=== PATIENT | female | born 1935 | race Caucasian/White ===

== ENCOUNTER 2020-01-08 10:38 | Inpatient (IN) ==
[2020-01-08] MEDS ORDERED: 0.9 % SODIUM CHLORIDE 500 ML IV ONE (11:03)
--- NOTE | 2020-01-08 11:17 | Emergency Department Note ---
Skin/Abscess/FB HPI General Chief complaint: Skin/Abscess/Foreign Body Stated complaint: Wound on buttocks Time Seen by Provider: 01/08/20 10:43 Source: patient Mode of arrival: wheelchair Limitations: no limitations History of Present Illness HPI Narrative: Narrative: 84-year-old female patient referred to the emergency department from the wound care clinic for septic work-up and possible admission. Patient fell at home around 12/17 and during that time she fractured her left femur and laid on the floor for over 3 days. During this time she developed a considerable decubitus ulcer. She was seen and evaluated [facility] and underwent surgical correction of her left femur fracture. She was subsequently discharged and placed the [facility] and spent over a week there. She is performing some limited physical therapy associated with the femur fracture. However, she has been evaluated by the marketing analytics specialist (Dr. Garcia) here to our facility and he is wanting to surgically debride the decubitus ulcer, if the patient be admitted. Upon arrival, patient has no considerable complaints. She is not taking significant medications for pain. ROS: Denies systemic illness, fever, sweats, chills. Denies headaches, tinnitus, or vision changes. Denies runny nose, sinus congestion, or cough. Denies shortness of breath. Denies retrosternal chest pain or palpitations. Denies abdominal pain, nausea, vomiting, or diarrhea. Denies dysuria, hematuria, urinary frequency, or urinary urgency. Related Data Home Medications Medication Instructions Recorded Confirmed brimonidine 1 drp OPHTHALMIC (EYE) BID 01/08/20 01/08/20 diltiazem HCl 180 mg PO QAM 01/08/20 01/08/20 famotidine [Acid Nursing Director 20 mg PO DAILY 01/08/20 01/08/20 (famotidine)] ferrous sulfate [FeroSul] 325 mg PO BID 01/08/20 01/08/20 latanoprost 1 drp OPHTHALMIC (EYE) QDAY 01/08/20 01/08/20 losartan 50 mg PO BID 01/08/20 01/08/20 polyethylene glycol 3350 [Miralax] 17 g PO QDAY 01/08/20 01/08/20 timolol maleate 1 drp OPHTHALMIC (EYE) QDAY 01/08/20 01/08/20 Allergies Allergy/AdvReac Type Severity Reaction Status Date / Time No Known Drug Allergies Allergy Verified 01/08/20 10:39 Review of Systems ROS ROS Narrative: Narrative: All systems ED: reviewed and negative except as stated. [facility] Narrative Patient History Narrative: Narrative: Medical/Surgical/Family History All Active Problems Left femoral shaft fracture (Acute) Pulmonary embolism (Acute) History of hip surgery (Acute) Elevated LFTs (Acute) Pressure ulcer (Acute) Anemia (Acute) Atrial fibrillation (Acute) Stage 3 chronic kidney disease (Acute) Hypertension (Acute) Fall (Acute) History of hip surgery (Acute) Medical History (Updated 01/08/20 @ 13:49 by Simón Cantu PA-C) Dehydration (Acute) Left femoral shaft fracture (Acute) Rhabdomyolysis (Acute) Social History Smoking Status: Never smoker Exam Narrative Narrative: Narrative: General Limitations: no limitations General appearance: other (Well-developed, well-nourished, 84-year-old female patient laying semirecumbent on the emergency room gurney in no acute distress.) Head Head: atraumatic and normocephalic Eye Eye: Present normal appearance, PERRL and EOMI; Absent scleral icterus and conjunctival injection ENT ENT: Present normal oropharynx and mucous membranes moist Neck Neck: Present trachea midline; Absent lymphadenopathy Chest Chest: Present symmetric chest wall rise Respiratory Respiratory: Present normal lung sounds bilaterally; Absent respiratory distress, wheezes, stridor, accessory muscle use and prolonged expiratory phase Cardiovascular Cardiovascular: Present regular rate and normal rhythm; Absent systolic murmur and diastolic murmur Extremities Extremities: Present tenderness, normal capillary refill and pedal edema (Unilateral swelling to the left foot and ankle. This is been present since surgery.); Absent normal inspection (For, well-healed surgical incisions to the lateral aspect of the left lower extremity.), full ROM and calf tenderness Back Back: Present full ROM Neurological Neurological: Present alert and oriented X3 Psychiatric Psychiatric: Present normal affect and normal mood Skin Skin: Present warm, dry, normal color and other (Large, foul-smelling, full- thickness skin ulcer to the left gluteus measuring approximately 4 cm x 3.5 cm x 2 cm deep. Wound bed is dark eschar. Surrounding dermis is indurated and erythematous. Smaller, more superficial, partial-thickness skin ulcer to the right gluteus measuring approximately 2 cm. Wound bed is pink. No active drainage from either site.) Expanded Skin Body image: 1. Large full-thickness skin ulcer. Course Course Course Narrative: Patient does have considerable foul-smelling full-thickness skin ulcer to the left gluteus. Wound culture swab was obtained. Reviewed the patient's vital signs indicates she is afebrile, normotensive, with normal heart rate. At this time she does not appear to meet SIRS criteria. Will order scre ening laboratory studies including recommended preoperative chest x-ray and EKG. Patient is comfortable and does not require any aggressive analgesia. I am going to hold off IV antibiotics until the results of her laboratory studies are known.. Reevaluation(s) Reevaluation #1: Review of her diagnostics show the following: CBC WBC 6.0, RBC 3.02, hemoglobin 9.0, hematocrit 29.6, platelet 237. Lactic acid 1.5. CMP alkaline phosphatase 128, all others normal nodes. C-reactive protein 5.5. 2 view chest x-ray showing no acute disease. Upon reevaluation patient is resting comfortably on the emergency room [facility]. After reviewing all the data I discussed these findings with the patient. She has a normal WBC and acid level. However, the marketing analytics specialist it would like to perform surgical intervention tomorrow. With this in mind, I reached out to the hospitalist (Dr. Hudson) and discussed the case with him. At this time Dr. Hudson consented to admit the patient to observation and then have the marketing analytics specialist consult in. This was told to the patient who verbalized understanding. She is remained stable throughout her entire time in the emergency department and is going to be admitted as mentioned. Time: 13:47 Vital Signs Vital signs: Vital Signs Temperature 97.5 F 01/08/20 10:39 Pulse Rate 73 01/08/20 10:39 Respiratory Rate 16 01/08/20 10:39 Blood Pressure 157/61 01/08/20 10:39 Pulse Oximetry (%) 96 01/08/20 10:39 Temperature 97.5 F 01/08/20 10:39 Pulse Rate 72 01/08/20 12:30 Respiratory Rate 16 01/08/20 12:30 Blood Pressure 99/51 01/08/20 12:30 Pulse Oximetry (%) 96 01/08/20 12:30 MDM MDM Narrative Medical decision making narrative: Narrative: Lab Data Lab results reviewed: Yes I reviewed the patient's lab results. Result diagrams: 01/08/20 11:31 01/08/20 11:30 Labs: Lab Results 01/08/20 01/08/20 01/08/20 Range/Units 11:15 11:30 11:30 WBC (4.50-11.00) K/mcL RBC (3.59-5.38) M/mcL Hgb (11.2-15.7) g/dL Hct (34.1-44.9) % MCV (80.0-100.0) fL MCH (26.0-34.0) pg MCHC (31.0-36.0) g/dL RDW (11.5-14.5) % Plt Count (140-440) K/mcL MPV (7.4-10.4) fL Gran % (38.0-78.0) % Lymph % (Auto) (15.5-49.0) % [place] % (Auto) (1.0-12.0) % Eos % (Auto) (0.0-7.0) % Baso % (Auto) (0.0-2.0) % Gran # (1.80-8.00) K/mcL Lymph # (Auto) (1.50-4.80) K/mcL [place] # (Auto) (0.10-0.90) K/mcL Eos # (Auto) (0.00-0.70) K/mcL Baso # (Auto) (0.00-0.30) K/mcL VBG Lactic Acid 1.5 (0.5-2.0) mmol/L Sodium 140 (133-145) mmol/L Potassium 4.5 (3.3-5.1) mmol/L Chloride 100 (96-108) mmol/L Carbon Dioxide 24 (22-30) mmol/L Anion Gap 16.0 (8-16) BUN 11 (8-23) mg/dl Creatinine 0.9 (0.6-1.1) mg/dl GFR Calculation 58 Glucose 95 (70-105) mg/dL Calcium 9.3 (8.6-10.4) mg/dl Total Bilirubin 0.6 (0.0-1.0) mg/dL AST 25 (0-37) U/l ALT 12 (0-40) U/l Alkaline Phosphatase 128 H (39-117) U/L C-Reactive Protein 5.5 H (0.0-0.8) mg/dl Total Protein 7.2 (5.9-8.4) gm/dL Albumin 3.5 (3.2-5.2) gm/dL Globulin 3.7 (2.2-3.7) gm/dL Albumin/Globulin Ratio 0.9 L (1.0-2.3) Urine Color Light yellow Urine Appearance Slightly cloudy Urine pH 6.5 (5.0-9.0) Ur Specific [place] 1.010 (1.003-1.030) Urine Protein Neg (NEG) mg/dL Urine Glucose (UA) Norm (NEG) mg/dL Urine Ketones Neg (NEG) mg/dL Urine Occult Blood Trace A (<5) dane/mcL Urine Nitrate Neg (NEG) Urine Bilirubin Neg (NEG) mg/dL Urine Urobilinogen Norm (NEG) mg/dL Ur Leukocyte Esterase 3+ (large) (NEG) /uL Urine RBC 0 (0-1) /hpf Urine WBC 82 H (0-4) /hpf Ur Squamous Epith Cells < 1 (0-4) /hpf Urine Bacteria Mod A (0) /hpf Ur Culture Indicated? Yes 01/08/20 Range/Units 11:31 WBC 6.0 (4.50-11.00) K/mcL RBC 3.02 L (3.59-5.38) M/mcL Hgb 9.0 L (11.2-15.7) g/dL Hct 29.6 L (34.1-44.9) % MCV 98.0 (80.0-100.0) fL MCH 29.8 (26.0-34.0) pg MCHC 30.4 L (31.0-36.0) g/dL RDW 14.0 (11.5-14.5) % Plt Count 237 (140-440) K/mcL MPV 11.3 H (7.4-10.4) fL Gran % 64.9 (38.0-78.0) % Lymph % (Auto) 23.6 (15.5-49.0) % Hudson % (Auto) 8.2 (1.0-12.0) % Eos % (Auto) 2.8 (0.0-7.0) % Baso % (Auto) 0.5 (0.0-2.0) % Gran # 3.87 (1.80-8.00) K/mcL Lymph # (Auto) 1.41 L (1.50-4.80) K/mcL Hudson # (Auto) 0.49 (0.10-0.90) K/mcL Eos # (Auto) 0.17 (0.00-0.70) K/mcL Baso # (Auto) 0.03 (0.00-0.30) K/mcL VBG Lactic Acid (0.5-2.0) mmol/L Sodium (133-145) mmol/L Potassium (3.3-5.1) mmol/L Chloride (96-108) mmol/L Carbon Dioxide (22-30) mmol/L Anion Gap (8-16) BUN (8-23) mg/dl Creatinine (0.6-1.1) mg/dl GFR Calculation Glucose (70-105) mg/dL Calcium (8.6-10.4) mg/dl Total Bilirubin (0.0-1.0) mg/dL AST (0-37) U/l ALT (0-40) U/l Alkaline Phosphatase (39-117) U/L C-Reactive Protein (0.0-0.8) mg/dl Total Protein (5.9-8.4) gm/dL Albumin (3.2-5.2) gm/dL Globulin (2.2-3.7) gm/dL Albumin/Globulin Ratio (1.0-2.3) Urine Color Urine Appearance Urine pH (5.0-9.0) Ur Specific [place] (1.003-1.030) Urine Protein (NEG) mg/dL Urine Glucose (UA) (NEG) mg/dL Urine Ketones (NEG) mg/dL Urine Occult Blood (<5) dane/mcL Urine Nitrate (NEG) Urine Bilirubin (NEG) mg/dL Urine Urobilinogen (NEG) mg/dL Ur Leukocyte Esterase (NEG) /uL Urine RBC (0-1) /hpf Urine WBC (0-4) /hpf Ur Squamous Epith Cells (0-4) /hpf Urine Bacteria (0) /hpf Ur Culture Indicated? Radiology Data Radiology results reviewed: Yes I reviewed the patient's radiology results. Radiology results narrative: Ordering Physician: Simón Cantu PA-C Date of Service: 01/08/20 Procedure(s): XR chest 2V Accession Number(s): [id number] CLINICAL INFORMATION: Surgical clearance. COMPARISON: None. FINDINGS: Heart size, mediastinum and pulmonary vessels are normal. Lungs are clear. Small eventration posterior left diaphragm and small/ moderate broad eventration anterior right diaphragm appreciated. Syndesmophytes bridge all the thoracic vertebral bodies suggesting chronic ankylosing spondylosis. IMPRESSION: No acute disease Interpreted and Authenticated by: Emil Meadows 01/08/20 Discharge Plan Patient/Caregiver Discharge Instructions Pt seen by BIRD SITTER/PA only: Yes Clinical Impression: Pressure ulcer Patient Disposition: Xfer As Outpt/Obs ([facility]) Condition: Good Follow up with: Mar Hanna MD [Primary Care Provider] - Prescriptions: No Action polyethylene glycol 3350 [Miralax] 17 gram Powder In Packet 17 g PO QDAY RF: 0 diltiazem HCl 180 mg Capsule,Extended Release 24 Hr 180 mg PO QAM RF: 0 ferrous sulfate [FeroSul] 325 mg (65 mg iron) Tablet 325 mg PO BID RF: 0 losartan 50 mg Tablet 50 mg PO BID RF: 0 famotidine [Acid Nursing Director (famotidine)] 20 mg tablet 20 mg PO DAILY RF: 0 latanoprost 0.005 % Drops 1 drp OPHTHALMIC (EYE) QDAY RF: 0 brimonidine 0.2 % Drops 1 drp OPHTHALMIC (EYE) BID RF: 0 timolol maleate 0.5 % Drops 1 drp OPHTHALMIC (EYE) QDAY RF: 0
[2020-01-08 12:15] LABS: Basophils # (Auto) 0.03 K/mcL (0.00-0.30); Basophils % (Auto) 0.5 % (0.0-2.0); Eosinophils # (Auto) 0.17 K/mcL (0.00-0.70); Eosinophils % (Auto) 2.8 % (0.0-7.0); Granulocytes % (Auto) 64.9 % (38.0-78.0); Hematocrit 29.6 % (34.1-44.9); Lymphocytes # (Auto) 1.41 K/mcL (1.50-4.80); Lymphocytes % (Auto) 23.6 % (15.5-49.0); Mean Corpuscular HGB Conc 30.4 g/dL (31.0-36.0); Mean Platelet Volume 11.3 fL (7.4-10.4); Monocytes # (Auto) 0.49 K/mcL (0.10-0.90); Monocytes % (Auto) 8.2 % (1.0-12.0); Platelet Count 237 K/mcL (140-440); RBC 3.02 M/mcL (3.59-5.38)
[2020-01-08 12:32] LABS: Chloride 100 mmol/L (96-108)
[2020-01-08 12:35] LABS: ALT/SGPT 12 U/l (0-40); AST/SGOT 25 U/l (0-37); Albumin 3.5 gm/dL (3.2-5.2); Albumin/Globulin Ratio 0.9 (1.0-2.3); Alkaline Phosphatase 128 U/L (39-117); Bilirubin,Total 0.6 mg/dL (0.0-1.0); Blood Urea Nitrogen 11 mg/dl (8-23); C-Reactive Protein 5.5 mg/dl (0.0-0.8); Calcium 9.3 mg/dl (8.6-10.4); Carbon Dioxide 24 mmol/L (22-30); Globulin 3.7 gm/dL (2.2-3.7); Glomerular Filtration Rate 58; Glucose 95 mg/dL (70-105)
--- NOTE | 2020-01-08 12:53 | XRay Report ---
CLINICAL INFORMATION: Surgical clearance. COMPARISON: None. FINDINGS: Heart size, mediastinum and pulmonary vessels are normal. Lungs are clear. Small eventration posterior left diaphragm and small/ moderate broad eventration anterior right diaphragm appreciated. Syndesmophytes bridge all the thoracic vertebral bodies suggesting chronic ankylosing spondylosis. IMPRESSION: No acute disease Interpreted and Authenticated by: Emil Meadows 01/08/20
[2020-01-08 13:21] LABS: Appearance,Urine SLIGHTLY CLOUDY; Bacteria,Urine MOD /hpf (0); Bilirubin,Urine NEG (NEG); Color,Urine LIGHT YELLOW; Culture Indicated,Urine YES; Glucose,Urine (UA) NORM (NEG); Ketones,Urine NEG (NEG); Leukocyte Esterase,Urine 3+ (LARGE) /uL (NEG); Nitrate,Urine NEG (NEG); PH,Urine 6.5 (5.0-9.0); Protein,Urine NEG (NEG); Urine Blood TRACE ery/mcL (<5); Urine RBC 0 /hpf (0-1); Urine Squamous Epithelial Cell < 1 /hpf (0-4); Urine WBC 82 /hpf (0-4); Urobilinogen,Urine NORM (NEG)
--- NOTE | 2020-01-08 13:40 | Internal Med History&Physical ---
HPI History of Present Illness Patient information: Note initiated : 01/08/20 at 1:40 pm Service Date, if different from initiated Date: [] Patient: Nu Coto a 84 y/o F admitted on for Wound on buttocks. Chief Complaint: [] History of present illness: Ms. Coto is a 84 year old F with a history of DVT/PE on anticoagulation/HTN/glaucoma and sacral decubitus ulcer following a traumatic fall early December leading to hip fracture and was on the floor for 3 days until she was admitted to the hospital. She was discharged to [facility] for rehab following which she discharged home. She noticed her wound getting progressively worse and using foul smelling discharge. She follows up with Dr. Garcia wound care clinic. She was evaluated today at the wound care clinic and subsequently referred to the ER for admission and operative in tervention/debridement of sacral decubiti. I discussed the case with Dr. Garcia who recommended admitting for 48 hours while she will undergo surgical intervention. Initial work-up in the ER was unremarkable with normal bicarb profile and no evidence of sepsis however urine drainage with foul-smelling necrotic decubitus ulcer noted. Hospitalist service was consulted for admission At the time of my evaluation patient is alert and respond to commands. She denies active distress. She endorses history as above. She denies subsequent trauma. She denies diarrhea, dysuria, fever, chills, shortness of breath Review of systems 10 point review system was performed and is negative except for ones discussed above [facility] Medical History (Updated 01/08/20 @ 13:49 by Simón Cantu PA-C) Dehydration (Acute) Left femoral shaft fracture (Acute) Rhabdomyolysis (Acute) Social History smoking status: Never smoker MEDS/ALLERGIES Home Medications and Allergies Home Medications Medication Instructions Recorded Confirmed Type apixaban [Eliquis] 5 mg PO BID 01/08/20 01/08/20 History brimonidine 1 drp OPHTHALMIC (EYE) BID 01/08/20 01/08/20 History diltiazem HCl 180 mg PO QAM 01/08/20 01/08/20 History famotidine [Acid Protection Specialist 20 mg PO DAILY 01/08/20 01/08/20 History (famotidine)] ferrous sulfate [FeroSul] 325 mg PO BID 01/08/20 01/08/20 History latanoprost 1 drp OPHTHALMIC (EYE) QDAY 01/08/20 01/08/20 History losartan 50 mg PO BID 01/08/20 01/08/20 History polyethylene glycol 3350 [Miralax] 17 g PO QDAY 01/08/20 01/08/20 History timolol maleate 1 drp OPHTHALMIC (EYE) QDAY 01/08/20 01/08/20 History Allergies Allergy/AdvReac Type Severity Reaction Status Date / Time No Known Drug Allergies Allergy Verified 01/08/20 10:39 EXAM Constitutional Vitals: Temp Pulse Resp BP Pulse Ox 97.5 F 72 16 99/51 96 01/08/20 10:39 01/08/20 12:30 01/08/20 12:30 01/08/20 12:30 01/08/20 12:30 Head normocephalic Oral cavity moist No ear nose discharge Eye movement symmetrical Neck supple no lymphadenopathy S1-S2 occasionally irregular Nonlabored breathing Nondistended nontender abdomen Sacral decubitus ulcer foul-smelling 3 x 3 cm area of necrotic tissue Lower extremity no cyanosis clubbing or joint swelling Skin no other suspicious lesion Psych anxious but alert cooperative Neuro normal higher function DATA Data Completed and Pending Labs on day of discharge: Labs from last 24 hours 01/08/20 01/08/20 01/08/20 11:31 11:30 11:30 WBC 6.0 RBC 3.02 L Hgb 9.0 L Hct 29.6 L MCV 98.0 MCH 29.8 MCHC 30.4 L RDW 14.0 Plt Count 237 MPV 11.3 H Gran % 64.9 Lymph % (Auto) 23.6 [place] % (Auto) 8.2 Eos % (Auto) 2.8 Baso % (Auto) 0.5 Gran # 3.87 Lymph # (Auto) 1.41 L [place] # (Auto) 0.49 Eos # (Auto) 0.17 Baso # (Auto) 0.03 VBG Lactic Acid 1.5 Sodium 140 Potassium 4.5 Chloride 100 Carbon Dioxide 24 Anion Gap 16.0 BUN 11 Creatinine 0.9 GFR Calculation 58 Glucose 95 Calcium 9.3 Total Bilirubin 0.6 AST 25 ALT 12 Alkaline Phosphatase 128 H C-Reactive Protein 5.5 H Total Protein 7.2 Albumin 3.5 Globulin 3.7 Albumin/Globulin Ratio 0.9 L Urine Color Urine Appearance Urine pH Ur Specific [place] Urine Protein Urine Glucose (UA) Urine Ketones Urine Occult Blood Urine Nitrate Urine Bilirubin Urine Urobilinogen Ur Leukocyte Esterase Urine RBC Urine WBC Ur Squamous Epith Cells Urine Bacteria Ur Culture Indicated? 01/08/20 11:15 WBC RBC Hgb Hct MCV MCH MCHC RDW Plt Count MPV Gran % Lymph % (Auto) [place] % (Auto) Eos % (Auto) Baso % (Auto) Gran # Lymph # (Auto) [place] # (Auto) Eos # (Auto) Baso # (Auto) VBG Lactic Acid Sodium Potassium Chloride Carbon Dioxide Anion Gap BUN Creatinine GFR Calculation Glucose Calcium Total Bilirubin AST ALT Alkaline Phosphatase C-Reactive Protein Total Protein Albumin Globulin Albumin/Globulin Ratio Urine Color Light yellow Urine Appearance Slightly cloudy Urine pH 6.5 Ur Specific [place] 1.010 Urine Protein Neg Urine Glucose (UA) Norm Urine Ketones Neg Urine Occult Blood Trace A Urine Nitrate Neg Urine Bilirubin Neg Urine Urobilinogen Norm Ur Leukocyte Esterase 3+ (large) Urine RBC 0 Urine WBC 82 H Ur Squamous Epith Cells < 1 Urine Bacteria Mod A Ur Culture Indicated? Yes A/P Narrative A/P Narrative: * Sacral decubitus wound with necrosis and surrounding cellulitis. Patient will undergo operative intervention/wound VAC placement by wound care physician Dr. Garcia. Admit as observation. * History of PE on anticoagulation. Hold anticoagulation for 24 hours * Glaucoma continue latanoprost/timolol/brimonidine * History of atrial fibrillation continue diltiazem * Hypertension continue losartan * GERD continue PPI Plan * Observation admit * N.p.o. after midnight * Antibiotic coverage * Pre-existing medical condition management as above * Hold anticoagulation * Wound care consult Time Spent With Patient Time: Total time spent is greater than 50% in coordination of care (as documented) at patient's floor/unit and/or counseling patient:
[2020-01-08] MEDS ORDERED: ONDANSETRON 4 MG ODT TABLET SL PRN (14:54)
[2020-01-08] MEDS ORDERED: MAGNESIUM SULFATE 2 GM/50 ML BAG IV PRN (14:54)
[2020-01-08] MEDS ORDERED: METOPROLOL TARTRATE 5 MG/5 ML VIAL IV PRN (14:54)
[2020-01-08] MEDS ORDERED: POTASSIUM CHLORIDE 40 MEQ in DEXTROSE 5% IN WATER 500 ML IV PRN (14:54)
[2020-01-08] MEDS ORDERED: MELATONIN 3 MG TABLET PO PRN (14:54)
[2020-01-08] MEDS ORDERED: BISACODYL 10 MG SUPP.RECT PR PRN (14:54)
[2020-01-08] MEDS ORDERED: POLYETHYLENE GLYCOL 3350 17 GM PACKET PO PRN (14:54)
[2020-01-08] MEDS ORDERED: hydrALAZINE 20 MG/ML VIAL IV PRN (14:54)
[2020-01-08] MEDS ORDERED: ACETAMINOPHEN 650 MG/65 ML BOTTLE IV PRN (14:54)
[2020-01-08] MEDS ORDERED: CEFEPIME 2 GM in DEXTROSE 5% IN WATER 50 ML IV SCH (14:54)
[2020-01-08] MEDS ORDERED: ONDANSETRON 4 MG/2 ML VIAL IV PRN (14:54)
[2020-01-08] MEDS: 0.9 % SODIUM CHLORIDE 10 ML SYRINGE IV SCH ×2 (17:12→22:03)
[2020-01-08] MEDS: FERROUS SULFATE 325 MG TABLET PO SCH ×2 (17:16→17:20)
[2020-01-08] MEDS: CEFEPIME 2 GM VIAL IV SCH (17:17)
[2020-01-08] MEDS: 0.9 % SODIUM CHLORIDE 1,000 ML IV SCH (17:19)
--- NOTE | 2020-01-08 17:21 | General Surgery Consult Note ---
HPI Data of Consult Primary Care Provider: Mar Hanna Consult Narrative Chief complaint: Infected Sacral pressure ulcers both buttocks . LEFT >> Right . Reason for consult: Surgical excision / Debridement. History of present illness: This lady was seen in wound care center today and se nt to ER for evaluation and admission for surgery in AM. 84/F S/P ORIF Left hip on 12/16/2019. Failed out patient Rehab and Physical therapy. Taken home by family to provided care at home. Patient developed pressure ulcers of buttocks, with FULL thickness necroses and gross localized infection with foul odor. NEEDS surgery / debridement at this time. Subsequent care / treatment i. e. open packing FIRST wound VAC etc later, will be determined as her condition evolves. I discussed this at length with patient's daughter, who is main CG. cc:: CC: Clement Schmitz [facility] Medical History (Updated 01/08/20 @ 13:49 by Simón Cantu PA-C) Dehydration (Acute) Left femoral shaft fracture (Acute) Rhabdomyolysis (Acute) Social History smoking status: Never smoker MEDS/ALLERGIES Home Medications and Allergies Home Medications Medication Instructions Recorded Confirmed Type apixaban [Eliquis] 5 mg PO BID 01/08/20 01/08/20 History brimonidine 1 drp OPHTHALMIC (EYE) BID 01/08/20 01/08/20 History diltiazem HCl 180 mg PO QAM 01/08/20 01/08/20 History famotidine [Acid Chief Diversity Officer 20 mg PO DAILY 01/08/20 01/08/20 History (famotidine)] ferrous sulfate [FeroSul] 325 mg PO BID 01/08/20 01/08/20 History latanoprost 1 drp OPHTHALMIC (EYE) QDAY 01/08/20 01/08/20 History losartan 50 mg PO BID 01/08/20 01/08/20 History polyethylene glycol 3350 [Miralax] 17 g PO QDAY 01/08/20 01/08/20 History timolol maleate 1 drp OPHTHALMIC (EYE) QDAY 01/08/20 01/08/20 History Allergies Allergy/AdvReac Type Severity Reaction Status Date / Time No Known Drug Allergies Allergy Verified 01/08/20 10:39 Physical Examination Vital Signs Vital signs: Temp Pulse Resp BP Pulse Ox 98.4 F 81 16 143/59 98 01/08/20 14:33 01/08/20 14:33 01/08/20 14:33 01/08/20 14:33 01/08/20 14:33 General physical appearance General physical exam: well developed, well nourished, no distress, no pain and other (FOUL SMELLING and draining necrotic tissue Buttock pressure ulcers . Bilateral.) Eyes Eye exam: PERRL and normal ocular movement ENT ENT exam: normal pinna, normal nares, normal mucosa and no congestion Head Head exam IM: Present atraumatic and normal inspection Neck Neck exam: no masses, trachea midline and no venous distension Cardiovascular Cardiovascular exam IM: Present normal rate and rhythm Respiratory Respiratory exam: normal expansion and clear to auscultation Abdomen Abdomen: Present soft, non tender and bowel sounds Integumentary Integumentary: Present other (Pressure ulcer Stage 5 Left buttock; Stage 3 Right buttock) Neurologic Neurologic: Present normal coordination and other (Ambulatory patient . Grossly NON focal neurological examination.) Musculoskeletal Musculoskeletal: Present other (S/P Left hip surgery . Ambulates with walker.) Psychiatric Psychiatric: Present speech is normal and other (Dementia / Alzheimer ?) Results Labs Result diagrams: 01/08/20 11:31 01/08/20 11:30 Labs: Abnormal lab results 01/08/20 01/08/20 01/08/20 Range/Units 11:15 11:30 11:31 RBC 3.02 L (3.59-5.38) M/mcL Hgb 9.0 L (11.2-15.7) g/dL Hct 29.6 L (34.1-44.9) % MCHC 30.4 L (31.0-36.0) g/dL MPV 11.3 H (7.4-10.4) fL Lymph # (Auto) 1.41 L (1.50-4.80) K/mcL Alkaline Phosphatase 128 H (39-117) U/L C-Reactive Protein 5.5 H (0.0-0.8) mg/dl Albumin/Globulin Ratio 0.9 L (1.0-2.3) Urine Occult Blood Trace A (<5) dane/mcL Urine WBC 82 H (0-4) /hpf Urine Bacteria Mod A (0) /hpf Diabetes panel 01/08/20 Range/Units 11:30 Sodium 140 (133-145) mmol/L Potassium 4.5 (3.3-5.1) mmol/L Chloride 100 (96-108) mmol/L Carbon Dioxide 24 (22-30) mmol/L BUN 11 (8-23) mg/dl Creatinine 0.9 (0.6-1.1) mg/dl Glucose 95 (70-105) mg/dL Calcium 9.3 (8.6-10.4) mg/dl AST 25 (0-37) U/l ALT 12 (0-40) U/l Alkaline Phosphatase 128 H (39-117) U/L Total Protein 7.2 (5.9-8.4) gm/dL Albumin 3.5 (3.2-5.2) gm/dL Calcium panel 01/08/20 Range/Units 11:30 Calcium 9.3 (8.6-10.4) mg/dl Albumin 3.5 (3.2-5.2) gm/dL Pituitary panel 01/08/20 Range/Units 11:30 Sodium 140 (133-145) mmol/L Potassium 4.5 (3.3-5.1) mmol/L Chloride 100 (96-108) mmol/L Carbon Dioxide 24 (22-30) mmol/L BUN 11 (8-23) mg/dl Creatinine 0.9 (0.6-1.1) mg/dl Glucose 95 (70-105) mg/dL Calcium 9.3 (8.6-10.4) mg/dl Adrenal panel 01/08/20 Range/Units 11:30 Sodium 140 (133-145) mmol/L Potassium 4.5 (3.3-5.1) mmol/L Chloride 100 (96-108) mmol/L Carbon Dioxide 24 (22-30) mmol/L BUN 11 (8-23) mg/dl Creatinine 0.9 (0.6-1.1) mg/dl Glucose 95 (70-105) mg/dL Calcium 9.3 (8.6-10.4) mg/dl Total Bilirubin 0.6 (0.0-1.0) mg/dL AST 25 (0-37) U/l ALT 12 (0-40) U/l Alkaline Phosphatase 128 H (39-117) U/L Total Protein 7.2 (5.9-8.4) gm/dL Albumin 3.5 (3.2-5.2) gm/dL All other labs normal. A/P Narrative A/P Narrative: Assessment: Infected pressure ulcers Bilateral buttocks / gluteal region. Plan: NPO after midnight. For OR surgical debridement and pulse lavage irrigation. Tissue for c/s. Open packing. Time Spent With Patient Time: Total time spent is greater than 50% in coordination of care (as documented) at patient's floor/unit and/or counseling patient: Total time spent with greater than 50% in coordination of care (as documented) at patient's floor/unit and/or counseling patient:: 15 - 24 minutes
[2020-01-08] MEDS ORDERED: SENNOSIDES/DOCUSATE SODIUM 1 TAB TABLET PO SCH (21:00)
[2020-01-08] MEDS: LOSARTAN 50 MG TABLET PO SCH (21:09)
[2020-01-08] MEDS: DOCUSATE SODIUM 100 MG CAPSULE PO SCH (21:09)
[2020-01-08] MEDS: ACETAMINOPHEN 325 MG TABLET PO PRN (21:09)
[2020-01-08] MEDS: BRIMONIDINE OPHTH DROPS 1 GTT BOTTLE 5ML OU SCH (21:11)
[2020-01-09] MEDS: CEFEPIME 2 GM VIAL IV SCH ×3 (00:31→20:37)
[2020-01-09] MEDS: ACETAMINOPHEN 325 MG TABLET PO PRN ×2 (01:45→20:38)
[2020-01-09] MEDS: 0.9 % SODIUM CHLORIDE 10 ML SYRINGE IV SCH ×3 (05:11→20:34)
[2020-01-09 06:52] LABS: Hematocrit 23.6 % (34.1-44.9); Hemoglobin 7.7 g/dL (11.2-15.7); Mean Cell Volume 93.3 fL (80.0-100.0); Mean Corpuscular HGB Conc 32.6 g/dL (31.0-36.0); Mean Platelet Volume 10.6 fL (7.4-10.4); Platelet Count 218 K/mcL (140-440); RBC 2.53 M/mcL (3.59-5.38); Red Cell Distribution Width 14.1 % (11.5-14.5)
[2020-01-09 07:09] LABS: ALT/SGPT 10 U/l (0-40); AST/SGOT 14 U/l (0-37); Albumin 2.8 gm/dL (3.2-5.2); Alkaline Phosphatase 95 U/L (39-117); Bilirubin,Direct < 0.2 mg/dL (0.0-0.3); Bilirubin,Total 0.5 mg/dL (0.0-1.0); Blood Urea Nitrogen 12 mg/dl (8-23); C-Reactive Protein 5.6 mg/dl (0.0-0.8); Calcium 8.5 mg/dl (8.6-10.4); Carbon Dioxide 22 mmol/L (22-30); Chloride 106 mmol/L (96-108); Globulin 2.7 gm/dL (2.2-3.7); Glomerular Filtration Rate 58; Glucose 108 mg/dL (70-105); Lactate Dehydrogenase 209 U/L (94-250); Phosphorous 3.9 mg/dL (2.7-4.5); Triglycerides 126 mg/dl (<150); Uric Acid 5.5 mg/dL (2.5-8.0)
[2020-01-09 08:23] LABS: Band Neutrophils % 2 % (0-10); Eosinophils % (Manual) 5 % (0-7); Lymphocytes % 10 % (15-49); Monocytes % (Manual) 11 % (1-12); Platelet Estimate NORMAL (NORMAL); RBC Morphology NORMAL (NORMAL); Segmented Neutrophils % 72 % (38-78)
[2020-01-09 08:37] LABS: Erythrocyte Sedimentation Rate 70 mm/hr (0-20)
[2020-01-09] MEDS ORDERED: POLYETHYLENE GLYCOL 3350 17 GM PACKET PO SCH (09:00)
[2020-01-09] MEDS ORDERED: LATANOPROST OPHTH DROPS 2.5ML BOTTLE OU SCH (09:00)
[2020-01-09] MEDS ORDERED: TIMOLOL 0.5% OPHTH DROPS BOTTLE 5ML OU SCH (09:00)
[2020-01-09] MEDS ORDERED: DILTIAZEM 180 MG CAP.XL.24H PO SCH (09:00)
[2020-01-09] MEDS ORDERED: FAMOTIDINE 20 MG TABLET PO SCH (09:00)
[2020-01-09] MEDS ORDERED: MULTIVIT,THER IRON,CA,FA & MIN 1 TABLET PO SCH (09:00)
--- NOTE | 2020-01-09 09:26 | Internal Med Progress Note ---
SUBJECTIVE Subjective Patient information: Note initiated : 01/09/20 at 9:25 am Service Date, if different from initiated Date: [] Patient: Nu Coto a 84 y/o F admitted on 01/08/20 for Wound on buttocks. Chief Complaint: History of present illness: Ms. Coto is a 84 year old F with a history of DVT/PE on anticoagulation/HTN/glaucoma and sacral decubitus ulcer following a traumatic fall early December leading to hip fracture and was on the floor for 3 days until she was admitted to the hospital. She was discharged to [facility] for rehab following which she discharged home. She noticed her wound getting progressively worse and using foul smelling discharge. She follows up with Dr. Garcia wound care clinic. She was evaluated today at the wound care clinic and subsequently referred to the ER for admission and operative intervention/debridement of sacral decubiti. I discussed the case with Dr. Garcia who recommended admitting for 48 hours while she will undergo surgical intervention. Initial work-up in the ER was unremarkable with normal bicarb profile and no evidence of sepsis however urine drainage with foul-smelling necrotic decubitus ulcer noted. Hospitalist service was consulted for admission At the time of my evaluation patient is alert and respond to commands. She denies active distress. She endorses history as above. She denies subsequent trauma. She denies diarrhea, dysuria, fever, chills, shortness of breath 01/08-patient underwent debridements right buttock wound/abscess drainage/pulse lavage irrigation. No overnight events. No additional surgical nursing staff. Postoperatively doing well. On antibiotic coverage. Case discussed with Dr. Garcia. Constitutional Vitals: Vital Signs Temp Pulse Resp BP Pulse Ox 98.7 F 74 18 127/56 97 01/09/20 06:45 01/09/20 06:45 01/09/20 03:35 01/09/20 06:45 01/09/20 06:45 Period Temp Pulse Resp BP Sys/Muir Pulse Ox Last 24 Hr 97.5 F-99.2 F 71-81 16-18 99-157/51-80 96-99 Intake and Output 01/08/20 01/09/20 01/09/20 21:59 05:59 13:59 Intake Total 0 Output Total 450 Balance 0 -450 Weight 75.75 kg Alert and respond to commands Nonlabored breathing No significant postoperative pain No anxiety Intake & Output: Intake & Output 01/08/20 01/09/20 01/09/20 21:59 05:59 13:59 Intake Total 0 Output Total 450 Balance 0 -450 Weight 75.75 kg Intake: Oral 0 Output: Void Amount 450 Other: Meal Dinner Percent of Meal Consumed 75% Urine Appearance Cloudy Cloudy Urine Color Pale Bright Yellow Urine Odor Strong Strong # Voids 1 1 OBJ DATA Labs CBC & Chem 7: 01/09/20 05:35 01/09/20 05:35 Labs: Abnormal Lab Results 01/09/20 01/09/20 01/08/20 05:35 05:35 11:31 RBC 2.53 L 3.02 L Hgb 7.7 L 9.0 L Hct 23.6 L 29.6 L MCHC 30.4 L MPV 10.6 H 11.3 H Lymph # (Auto) 1.41 L Lymphocytes % 10 L ESR 70 H Glucose 108 H Calcium 8.5 L Alkaline Phosphatase C-Reactive Protein 5.6 H Total Protein 5.5 L Albumin 2.8 L Albumin/Globulin Ratio Urine Occult Blood Urine WBC Urine Bacteria 01/08/20 01/08/20 11:30 11:15 RBC Hgb Hct MCHC MPV Lymph # (Auto) Lymphocytes % ESR Glucose Calcium Alkaline Phosphatase 128 H C-Reactive Protein 5.5 H Total Protein Albumin Albumin/Globulin Ratio 0.9 L Urine Occult Blood Trace A Urine WBC 82 H Urine Bacteria Mod A Meds: Medications Acetaminophen (Tylenol) 650 mg PO Q4-6HP PRN; Protocol PRN Reason: Per Pain Protocol/Fever > 101 Last Admin: 01/09/20 01:45 Dose: 650 mg Documented by: Bisacodyl (Dulcolax) 10 mg NH Q2-3DAYS PRN PRN Reason: Constipation Brimonidine Tartrate (Alphagan P Ophth Drops) 1 gtt OU BID [facility] Last Admin: 01/08/20 21:11 Dose: Not Given Documented by: Cefepime HCl (Maxipime) 2 gm IV Q12H [facility] Last Admin: 01/09/20 00:31 Dose: 2 gm Documented by: Diltiazem HCl (Cardizem Cd) 180 mg PO DAILY [facility] Docusate Sodium (Colace) 100 mg PO BID [facility] Last Admin: 01/08/20 21:09 Dose: 100 mg Documented by: Famotidine (Pepcid) 20 mg PO DAILY [facility] Ferrous Sulfate (Ferrous Sulfate) 325 mg PO BIDCC [facility] Last Admin: 01/08/20 17:20 Dose: Not Given Documented by: Hydralazine HCl (Apresoline) 10 mg IV Q4-6HP PRN PRN Reason: Hypertension Potassium Chloride 40 meq/ (Dextrose) 520 mls @ 130 mls/hr IV UD PRN PRN Reason: K+ = or < 3.5 Sodium Chloride (Sodium Chloride 0.9%) 1,000 mls @ 50 mls/hr IV .Q20H [facility] Stop: 01/11/20 02:53 Last Admin: 01/08/20 17:19 Dose: 50 mls/hr Documented by: Acetaminophen (Ofirmev) 650 mg in 65 mls @ 130 mls/hr IV Q6HP PRN; Protocol PRN Reason: Per Pain Protocol/Fever > 101 Magnesium Sulfate (Magnesium Sulfate) 2 gm in 50 mls @ 50 mls/hr IV UD PRN PRN Reason: MG = or < 1.7 Iron Carb/Multivit/[place]/Folic Acid (Multivitamin W/Minerals) 1 tab PO DAILY [facility] Latanoprost (Xalatan Ophth Drops) 1 gtt OU QDAY [facility] Losartan Potassium (Cozaar) 50 mg PO BID [facility] Last Admin: 01/08/20 21:09 Dose: 50 mg Documented by: Melatonin (Melatonin 3mg Tablet) 3 mg PO HSP PRN PRN Reason: Insomnia Metoprolol Tartrate (Lopressor) 5 mg IV Q5M PRN PRN Reason: Heart Rate > 140 bpm Ondansetron HCl (Zofran Odt) 4 mg SL Q4-6HP PRN; Protocol PRN Reason: Nausea And Vomiting Ondansetron HCl (Zofran) 4 mg IV Q4-6HP PRN; Protocol PRN Reason: Nausea And Vomiting Polyethylene Glycol (Miralax) 17 gm PO DAILYP PRN PRN Reason: Constipation Senna/Docusate Sodium (Senna Plus Tablet) 1 tab PO HS [facility] Last Admin: 01/08/20 21:09 Dose: 1 tab Documented by: Sodium Chloride (Saline Flush) 10 ml IV Q8 [facility] Last Admin: 01/09/20 05:11 Dose: Not Given Documented by: Timolol Maleate (Timoptic 0.5% Ophth Drops) 1 gtt OU QDAY [facility] A/P Narrative A/P Narrative: * Sacral decubitus wound with necrosis and surrounding cellulitis. status post right buttock wound abscess drainage/pulse lavage irrigation. Continue wound care per wound physician. On cefepime/vancomycin. De-escalate based on cultures * Complicated UTI continue cefepime * Anemia- 2 U PRBC transfusion today * History of PE on anticoagulation. Restart anticoagulation in a.m. * Glaucoma continue latanoprost/timolol/brimonidine * History of atrial fibrillation continue diltiazem * Hypertension continue losartan * GERD continue PPI Plan * Postop care per surgery * Dietary interventions * Antibiotic coverage * Pre-existing medical condition management as above * Restart anticoagulation in 24 hours * Wound care consult Time Spent With Patient Time: Total time spent is greater than 50% in coordination of care (as documented) at patient's floor/unit and/or counseling patient: QUALITY VTE Deep Vein Thrombosis/Pulmonary Embolism Present on Admission: No
[2020-01-09] MEDS ORDERED: 0.9 % SODIUM CHLORIDE 250 ML IV SCH ×2 (09:30→15:10)
[2020-01-09] MEDS: FERROUS SULFATE 325 MG TABLET PO SCH ×2 (10:03→17:12)
[2020-01-09] MEDS: LOSARTAN 50 MG TABLET PO SCH ×2 (10:04→20:37)
[2020-01-09] MEDS: DOCUSATE SODIUM 100 MG CAPSULE PO SCH ×2 (10:05→20:34)
[2020-01-09] MEDS: BRIMONIDINE OPHTH DROPS 1 GTT BOTTLE 5ML OU SCH ×2 (10:23→20:34)
[2020-01-09] MEDS ORDERED: cefTRIAXone 1 GM VIAL IV ONE (10:44)
[2020-01-09] MEDS ORDERED: IPRATROPIUM/ALBUTEROL 3 ML AMPUL.NEB NEB PRN (10:56)
[2020-01-09] MEDS ORDERED: BENZOCAINE/MENTHOL 1 LOZENGE PO PRN (10:56)
[2020-01-09] MEDS ORDERED: ACETAMINOPHEN 1,000 MG/100 ML BOTTLE IV ONE (10:56)
[2020-01-09] MEDS ORDERED: METHOCARBAMOL 1,000 MG/10 ML VIAL IV PRN (10:56)
[2020-01-09] MEDS ORDERED: fentaNYL 100 MCG/2 ML VIAL IV PRN (10:56)
[2020-01-09] MEDS ORDERED: NALOXONE HCL 0.4 MG/ML VIAL IV PRN (10:56)
[2020-01-09] MEDS ORDERED: LACTATED RINGERS 250 ML IV PRN (10:56)
[2020-01-09] MEDS ORDERED: FLUMAZENIL 0.1 MG/ML ML IV PRN (10:56)
[2020-01-09] MEDS ORDERED: ONDANSETRON 4 MG/2 ML VIAL IV ONE (11:00)
[2020-01-09] MEDS ORDERED: PHENYLEPHRINE 10 MG/ML VIAL IV ONE (11:00)
[2020-01-09] MEDS ORDERED: LIDOCAINE HCL/PF 100 MG/5 ML SYRINGE IV ONE (11:00)
[2020-01-09] MEDS ORDERED: PROPOFOL 200 MG/20 ML VIAL IV ONE (11:00)
[2020-01-09] MEDS ORDERED: KETAMINE 100 MG/ML ML IV ONE (11:00)
[2020-01-09] MEDS ORDERED: LACTATED RINGERS 1,000 ML IV SCH (11:00)
[2020-01-09] MEDS ORDERED: VANCOMYCIN 1,000 MG in 0.9 % SODIUM CHLORIDE 250 ML IV ONE (11:00)
[2020-01-09] MEDS ORDERED: DEXAMETHASONE 10 MG/ML VIAL IV ONE (11:00)
[2020-01-09] MEDS ORDERED: GLYCOPYRROLATE 0.2 MG/ML VIAL IV ONE (11:00)
[2020-01-09] MEDS ORDERED: fentaNYL 100 MCG/2 ML VIAL IV ONE (11:00)
[2020-01-09] MEDS ORDERED: ePHEDrine 50 MG/ML AMPUL IV ONE (11:00)
[2020-01-09] MEDS ORDERED: GENTAMICIN SULFATE 800 MG/20 ML VIAL IR ONE (11:19)
[2020-01-09] MEDS ORDERED: TRIAMCINOLONE ACETONIDE 40 MG/ML VIAL INTRAARTIC ONE (11:52)
--- NOTE | 2020-01-09 12:04 | Brief Operative Note ---
Brief Operative Note Date of procedure: 01/09/20 Pre-op diagnosis: SEPSIS. CSSSI Abscess Left buttock and open wound Right butt ock. Post-op diagnosis: same Procedure: Debridement of RIGHT buttock wound EXCISION debridement of LEFT buttock wound / necroses and abscess. Pulse lavage irrigation Tissue for pathology and c/s OPEN packing, Grafts/Implants: No Anesthesia: GLMA Findings: Necrotizing CSSSI LEFT buttock with abscess Stage 5 Superficial RIGHT buttock wound / Ulcer Stage 2 Complications: none Surgeon: Jero Garcia Estimated blood loss (cc): 30 Specimens Removed/Pathology: other (Tiisue LEFT buttock for pathology and c/s.) Condition: stable Disposition: PACU
[2020-01-09] MEDS: 0.9 % SODIUM CHLORIDE 1,000 ML IV SCH ×2 (14:56→17:45)
[2020-01-09] MEDS ORDERED: hydrALAZINE 20 MG/ML VIAL IV PRN (15:10)
[2020-01-09] MEDS ORDERED: ACETAMINOPHEN 650 MG/65 ML BOTTLE IV PRN (15:10)
[2020-01-09] MEDS ORDERED: ONDANSETRON 4 MG ODT TABLET SL PRN (15:10)
[2020-01-09] MEDS ORDERED: POLYETHYLENE GLYCOL 3350 17 GM PACKET PO PRN (15:10)
[2020-01-09] MEDS ORDERED: ONDANSETRON 4 MG/2 ML VIAL IV PRN (15:10)
[2020-01-09] MEDS ORDERED: BISACODYL 10 MG SUPP.RECT PR PRN (15:10)
[2020-01-09] MEDS ORDERED: POTASSIUM CHLORIDE 40 MEQ in DEXTROSE 5% IN WATER 500 ML IV PRN (15:10)
[2020-01-09] MEDS ORDERED: METOPROLOL TARTRATE 5 MG/5 ML VIAL IV PRN (15:10)
[2020-01-09] MEDS: SENNOSIDES/DOCUSATE SODIUM 1 TAB TABLET PO SCH (20:34)
[2020-01-09] MEDS: APIXABAN 5 MG TABLET PO SCH (20:37)
[2020-01-09] MEDS: MELATONIN 3 MG TABLET PO PRN (20:37)
[2020-01-10] MEDS: 0.9 % SODIUM CHLORIDE 10 ML SYRINGE IV SCH ×3 (05:21→21:39)
[2020-01-10 09:00] LABS: Mean Cell Volume 90.9 fL (80.0-100.0); Mean Corpuscular HGB Conc 33.3 g/dL (31.0-36.0); Mean Platelet Volume 10.9 fL (7.4-10.4); Platelet Count 205 K/mcL (140-440); Red Cell Distribution Width 14.4 % (11.5-14.5); WBC 6.8 K/mcL (4.50-11.00)
[2020-01-10 09:23] LABS: ALT/SGPT 9 U/l (0-40); AST/SGOT 13 U/l (0-37); Albumin 3.1 gm/dL (3.2-5.2); Albumin/Globulin Ratio 1.1 (1.0-2.3); Alkaline Phosphatase 99 U/L (39-117); Bilirubin,Direct 0.2 mg/dL (0.0-0.3); Bilirubin,Total 0.6 mg/dL (0.0-1.0); Blood Urea Nitrogen 16 mg/dl (8-23); Calcium 8.3 mg/dl (8.6-10.4); Carbon Dioxide 21 mmol/L (22-30); Chloride 104 mmol/L (96-108); Globulin 2.9 gm/dL (2.2-3.7); Glomerular Filtration Rate 79; Glucose 137 mg/dL (70-105); Lactate Dehydrogenase 194 U/L (94-250); Phosphorous 3.4 mg/dL (2.7-4.5); Triglycerides 86 mg/dl (<150); Uric Acid 4.7 mg/dL (2.5-8.0)
[2020-01-10] MEDS: DILTIAZEM 180 MG CAP.XL.24H PO SCH (10:09)
[2020-01-10] MEDS: FERROUS SULFATE 325 MG TABLET PO SCH ×2 (10:09→17:13)
[2020-01-10] MEDS: DOCUSATE SODIUM 100 MG CAPSULE PO SCH ×2 (10:10→19:55)
[2020-01-10] MEDS: LOSARTAN 50 MG TABLET PO SCH ×2 (10:11→19:55)
[2020-01-10] MEDS: APIXABAN 5 MG TABLET PO SCH ×2 (10:11→19:55)
[2020-01-10] MEDS: FAMOTIDINE 20 MG TABLET PO SCH (10:12)
[2020-01-10] MEDS: MULTIVIT,THER IRON,CA,FA & MIN 1 TABLET PO SCH (10:13)
[2020-01-10] MEDS: BRIMONIDINE OPHTH DROPS 1 GTT BOTTLE 5ML OU SCH ×2 (10:14→19:55)
[2020-01-10] MEDS: TIMOLOL 0.5% OPHTH DROPS BOTTLE 5ML OU SCH (10:14)
[2020-01-10] MEDS: LATANOPROST OPHTH DROPS 2.5ML BOTTLE OU SCH (10:15)
[2020-01-10 10:19] LABS: Band Neutrophils % 1 % (0-10); Lymphocytes % 14 % (15-49); Monocytes % (Manual) 2 % (1-12); Platelet Estimate NORMAL (NORMAL); RBC Morphology NORMAL (NORMAL); Segmented Neutrophils % 83 % (38-78)
[2020-01-10] MEDS: CEFEPIME 2 GM VIAL IV SCH (10:20)
--- NOTE | 2020-01-10 11:56 | Internal Med Progress Note ---
SUBJECTIVE Subjective Patient information: Note initiated : 01/10/20 at 11:52 am Service Date, if different from initiated Date: [] Patient: Nu Coto a 84 y/o F admitted on 01/09/20 for Wound on buttocks. Chief Complaint: History of present illness: Ms. Coto is a 84 year old F with a history of DVT/PE on anticoagulation/HTN/glaucoma and sacral decubitus ulcer following a traumatic fall early December leading to hip fracture and was on the floor for 3 days until she was admitted to the hospital. She was discharged to [facility] for rehab following which she discharged home. She noticed her wound getting progressively worse and using foul smelling discharge. She follows up with Dr. Garcia wound care clinic. She was evaluated today at the wound care clinic and subsequently referred to the ER for admission and operative intervention/debridement of sacral decubiti. I discussed the case with Dr. Garcia who recommended admitting for 48 hours while she will undergo surgical intervention. Initial work-up in the ER was unremarkable with normal bicarb profile and no evidence of sepsis however urine drainage with foul-smelling necrotic decubitus ulcer noted. Hospitalist service was consulted for admission At the time of my evaluation patient is alert and respond to commands. She denies active distress. She endorses history as above. She denies subsequent trauma. She denies diarrhea, dysuria, fever, chills, shortness of breath 01/08-patient underwent debridements right buttock wound/abscess drainage/pulse lavage irrigation. No overnight events. No additional surgical nursing staff. Postoperatively doing well. On antibiotic coverage. Case discussed with Dr. Garcia. 01/09-patient doing well. Postop day 2. Tolerating diet. Sitting on chair. No overnight events. White count 6.8. Hemoglobin 10. Denies pain. No concerns expressed with nursing staff. Case management coordinate SNF transfer. Constitutional Vitals: Vital Signs Temp Pulse Resp BP Pulse Ox 98.3 F 83 18 149/67 96 01/10/20 08:00 01/10/20 08:00 01/10/20 08:00 01/10/20 08:00 01/10/20 08:00 Period Temp Pulse Resp BP Sys/Muir Pulse Ox Last 24 Hr 97.8 F-98.9 F 60-96 14-18 109-158/49-71 95-99 Intake and Output 01/09/20 01/10/20 01/10/20 21:59 05:59 13:59 Intake Total 650 325 Balance 650 325 Weight 76.34 kg Alert and oriented Nonlabored breathing Sacral wound dressing No anxiety Intake & Output: Intake & Output 01/09/20 01/10/20 01/10/20 21:59 05:59 13:59 Intake Total 650 325 Balance 650 325 Weight 76.34 kg Intake: Blood Product 650 325 Other: Meal snack Percent of Meal Consumed 100% Feeding Ability Independent Urine Appearance Clear Urine Color Pale Urine Odor Normal # Voids 1 4 1 # Bowel Movements 1 OBJ DATA Labs CBC & Chem 7: 01/10/20 06:08 01/10/20 06:08 Labs: Abnormal Lab Results 01/10/20 01/10/20 01/09/20 06:08 06:08 05:35 RBC 3.30 L Hgb 10.0 L Hct 30.0 L MCHC MPV 10.9 H Lymph # (Auto) Seg Neutrophils % 83 H Lymphocytes % 14 L ESR Carbon Dioxide 21 L Glucose 137 H 108 H Calcium 8.3 L 8.5 L Alkaline Phosphatase C-Reactive Protein 5.6 H Total Protein 5.5 L Albumin 3.1 L 2.8 L Albumin/Globulin Ratio Urine Occult Blood Urine WBC Urine Bacteria 01/09/20 01/08/20 01/08/20 05:35 11:31 11:30 RBC 2.53 L 3.02 L Hgb 7.7 L 9.0 L Hct 23.6 L 29.6 L MCHC 30.4 L MPV 10.6 H 11.3 H Lymph # (Auto) 1.41 L Seg Neutrophils % Lymphocytes % 10 L ESR 70 H Carbon Dioxide Glucose Calcium Alkaline Phosphatase 128 H C-Reactive Protein 5.5 H Total Protein Albumin Albumin/Globulin Ratio 0.9 L Urine Occult Blood Urine WBC Urine Bacteria 01/08/20 11:15 RBC Hgb Hct MCHC MPV Lymph # (Auto) Seg Neutrophils % Lymphocytes % ESR Carbon Dioxide Glucose Calcium Alkaline Phosphatase C-Reactive Protein Total Protein Albumin Albumin/Globulin Ratio Urine Occult Blood Trace A Urine WBC 82 H Urine Bacteria Mod A Meds: Medications Acetaminophen (Tylenol) 650 mg PO Q4-6HP PRN; Protocol PRN Reason: Per Pain Protocol/Fever > 101 Last Admin: 01/09/20 20:38 Dose: 650 mg Documented by: Apixaban (Eliquis) 5 mg PO BID [facility] Last Admin: 01/10/20 10:11 Dose: 5 mg Documented by: Bisacodyl (Dulcolax) 10 mg NH Q2-3DAYS PRN PRN Reason: Constipation Brimonidine Tartrate (Alphagan P Ophth Drops) 1 gtt OU BID [facility] Last Admin: 01/10/20 10:14 Dose: Not Given Documented by: Cefepime HCl (Maxipime) 2 gm IV Q12H [facility] Last Admin: 01/10/20 10:20 Dose: 2 gm Documented by: Diltiazem HCl (Cardizem Cd) 180 mg PO DAILY [facility] Last Admin: 01/10/20 10:09 Dose: 180 mg Documented by: Docusate Sodium (Colace) 100 mg PO BID [facility] Last Admin: 01/10/20 10:10 Dose: 100 mg Documented by: Famotidine (Pepcid) 20 mg PO DAILY [facility] Last Admin: 01/10/20 10:12 Dose: 20 mg Documented by: Ferrous Sulfate ([facility] Sulfate) [facility] Last Admin: 01/10/20 10:09 Dose: 325 mg Documented by: Hydralazine HCl (Apresoline) 10 mg IV Q4-6HP PRN PRN Reason: Hypertension Sodium Chloride (Sodium Chloride 0.9%) 1,000 mls @ 50 mls/hr IV .Q20H [facility] Stop: 01/11/20 02:53 Last Admin: 01/09/20 17:45 Dose: Not Given Documented by: Acetaminophen (Ofirmev) 650 mg in 65 mls @ 130 mls/hr IV Q6HP PRN; Protocol PRN Reason: Per Pain Protocol/Fever > 101 Magnesium Sulfate (Magnesium Sulfate) 2 gm in 50 mls @ 50 mls/hr IV UD PRN PRN Reason: MG = or < 1.7 Potassium Chloride 40 meq/ (Dextrose) 520 mls @ 130 mls/hr IV UD PRN PRN Reason: K+ = or < 3.5 Iron Carb/Multivit/[place]/Folic Acid (Multivitamin W/Minerals) 1 tab PO DAILY [facility] Last Admin: 01/10/20 10:13 Dose: 1 tab Documented by: Latanoprost (Xalatan Ophth Drops) 1 gtt OU QDAY [facility] Last Admin: 01/10/20 10:15 Dose: Not Given Documented by: Losartan Potassium (Cozaar) 50 mg PO BID [facility] Last Admin: 01/10/20 10:11 Dose: 50 mg Documented by: Melatonin (Melatonin 3mg Tablet) 3 mg PO HSP PRN PRN Reason: Insomnia Last Admin: 01/09/20 20:37 Dose: 3 mg Documented by: Metoprolol Tartrate (Lopressor) 5 mg IV Q5M PRN PRN Reason: Heart Rate > 140 bpm Ondansetron HCl (Zofran Odt) 4 mg SL Q4-6HP PRN; Protocol PRN Reason: Nausea And Vomiting Ondansetron HCl (Zofran) 4 mg IV Q4-6HP PRN; Protocol PRN Reason: Nausea And Vomiting Polyethylene Glycol (Miralax) 17 gm PO DAILYP PRN PRN Reason: Constipation Senna/Docusate Sodium (Senna Plus Tablet) 1 tab PO HS [facility] Last Admin: 01/09/20 20:34 Dose: Not Given Documented by: Sodium Chloride (Saline Flush) 10 ml IV Q8 [facility] Last Admin: 01/10/20 05:21 Dose: Not Given Documented by: Timolol Maleate (Timoptic 0.5% Ophth Drops) 1 gtt OU QDAY [facility] Last Admin: 01/10/20 10:14 Dose: Not Given Documented by: A/P Narrative A/P Narrative: * Sacral decubitus wound with necrosis and surrounding cellulitis. status post right buttock wound abscess drainage/pulse lavage irrigation. Ongoing wound care per wound physician. Polymicrobial culture including Enterobacter/E. coli. Discontinue vancomycin/cefepime. Switch to ciprofloxacin * MDR Enterobacter complicated UTI -switched to ciprofloxacin * Anemia- 2 U PRBC transfusion today * History of PE on anticoagulation. Restart anticoagulation * Glaucoma continue latanoprost/timolol/brimonidine * History of atrial fibrillation continue diltiazem * Hypertension continue losartan * GERD continue PPI Plan * Dietary interventions with high protein calorie supplements * Antibiotic coverage * Pre-existing medical condition management as above * Restart anticoagulation * Wound management per Dr. Garcia Time Spent With Patient Time: Total time spent is greater than 50% in coordination of care (as documented) at patient's floor/unit and/or counseling patient: QUALITY VTE Deep Vein Thrombosis/Pulmonary Embolism Present on Admission: No
[2020-01-10] MEDS: MAGNESIUM SULFATE 2 GM/50 ML BAG IV PRN (13:53)
[2020-01-10] MEDS: CIPROFLOXACIN 500 MG TABLET PO SCH ×2 (13:59→19:55)
[2020-01-10] MEDS: 0.9 % SODIUM CHLORIDE 1,000 ML IV SCH (18:09)
[2020-01-10] MEDS: SENNOSIDES/DOCUSATE SODIUM 1 TAB TABLET PO SCH (19:54)
[2020-01-11] MEDS: 0.9 % SODIUM CHLORIDE 10 ML SYRINGE IV SCH ×3 (04:52→20:54)
[2020-01-11 06:50] LABS: Hematocrit 29.3 % (34.1-44.9); Hemoglobin 9.5 g/dL (11.2-15.7); Mean Cell Volume 91.8 fL (80.0-100.0); Mean Corpuscular HGB Conc 32.4 g/dL (31.0-36.0); Mean Platelet Volume 10.3 fL (7.4-10.4); Platelet Count 203 K/mcL (140-440); RBC 3.19 M/mcL (3.59-5.38); Red Cell Distribution Width 14.5 % (11.5-14.5); WBC 6.4 K/mcL (4.50-11.00)
--- NOTE | 2020-01-11 07:26 | Operative Note ---
DATE OF OPERATION: 01/09/2020 PREOPERATIVE DIAGNOSES: 1. Left and right buttock wounds-left buttock abscess and open wound right buttock. 2. History of ORIF left hip about 3 weeks ago. Patient developed this complication at home when her family members were caring for her. POSTOPERATIVE DIAGNOSES: 1. Left and right buttock wounds-left buttock abscess and open wound right buttock. 2. History of ORIF left hip about 3 weeks ago. Patient developed this complication at home when her family members were caring for her. OPERATION: 1. Debridement of right buttock wound. 2. Excision of the left buttock necrotic abscess. 3. Pulse lavage irrigation. 4. Open packing. ESTIMATED BLOOD LOSS: About 30 mL SPECIMENS: Specimen from left buttock wound was sent for pathology and culture and sensitivity. ANESTHESIA: General laryngeal mask airway. TOWEL ROLLING MACHINE OPERATOR: Natty Casey CRNA SURGEON: Jero Garcia MD INDICATIONS: This is an 84-year-old female with a history of dementia. She underwent ORIF of left hip at [facility] on 12/16/2019. Subsequently, she was recuperating at [facility] in [place]. For various reasons, this could not be continued and patient's family members took her home. Over the next few days, the patient developed pressure ulcers over the buttocks. She was seen in the wound care center on 01/08/2020. Foul necrotic infection was present requiring surgical debridement. She was sent to the emergency room and admitted to med/surg floor. Today, she was taken to the operating room for surgery. Postoperatively, this is a complex wound with a large cavity packed open. This patient has to be admitted as a full admit. Further course of her stay in the hospital will depend on how the condition evolves. She needs close monitoring for wound management, packing changes, likely wound V.A.C. application, and then the question of rehabilitation will arise after assessment by Physical Therapy and Occupational Therapy. PROCEDURE IN DETAIL: After obtaining informed consent, patient was taken to the operating room. A timeout was called. She was anesthetized uneventfully in supine position using laryngeal mask airway. She was very carefully positioned to right lateral on the operating table. This position was maintained with a beanbag. Attention was directed towards airway connections, IV lines, pressure points. Preoperative photographs were taken. First, the right buttock wound, which is a stage II full thickness wound extending up to the dermis was sharply debrided with #5 curet. Bright red oozing was noted from the wound bed and edges. Hemostasis was achieved with pressure. Attention was turned to the main wound on the left buttock. This was foul smelling necrotic skin, subcutaneous tissue, adipose tissue extending all the way up to the gluteal fascia and musculature. This was excised in stages until all the necrotic foul smelling tissue was debrided and extirpated. Bleeding was controlled by pressure. We irrigated this wound thoroughly with pulse lavage irrigation using 3 liters of normal saline mixed with 800 mg of gentamicin solution. The remaining areas of less irritable necrotic adipose tissue was sharply excised with pickup and Metzenbaum scissors. Once again, the wound was copiously washed with about 300 mL of normal saline mixed with 15 mL of dilute hydrogen peroxide. The wound was again irrigated with pulse lavage irrigation and packed open with a large Xeroform gauze reinforced with a 2 inch Kerlix gauze soaked in Betadine solution. This was held in place with further reinforcement using 4 x 4 gauze, Medipore tape, ABD pad and Medipore tape. Operation was well tolerated. She recovered from anesthesia uneventfully. She was taken to in stable condition. PLAN: Postoperatively, I saw this patient on the floor and discussed her management with the tank house supervisor, hospitalist physician and the charge nurse on the floor. This patient is a full admit and further recommendations about her care will be made as her condition evolves. VD:kj Job ID: [id number] Doc ID: [id number] Jero Garcia MD
[2020-01-11 07:48] LABS: ALT/SGPT 12 U/l (0-40); AST/SGOT 16 U/l (0-37); Albumin 2.9 gm/dL (3.2-5.2); Alkaline Phosphatase 93 U/L (39-117); Bilirubin,Total 0.3 mg/dL (0.0-1.0); Blood Urea Nitrogen 17 mg/dl (8-23); Calcium 8.5 mg/dl (8.6-10.4); Carbon Dioxide 22 mmol/L (22-30); Chloride 107 mmol/L (96-108); Globulin 2.9 gm/dL (2.2-3.7); Glomerular Filtration Rate 67; Glucose 105 mg/dL (70-105); Lactate Dehydrogenase 193 U/L (94-250); Triglycerides 86 mg/dl (<150); Uric Acid 4.2 mg/dL (2.5-8.0)
[2020-01-11 07:50] LABS: Bilirubin,Direct < 0.2 mg/dL (0.0-0.3); Phosphorous 2.5 mg/dL (2.7-4.5)
[2020-01-11] MEDS: LOSARTAN 50 MG TABLET PO SCH ×2 (08:08→20:53)
[2020-01-11] MEDS: DILTIAZEM 180 MG CAP.XL.24H PO SCH (08:08)
[2020-01-11] MEDS: FERROUS SULFATE 325 MG TABLET PO SCH ×2 (08:08→18:30)
[2020-01-11] MEDS: MULTIVIT,THER IRON,CA,FA & MIN 1 TABLET PO SCH (08:08)
[2020-01-11] MEDS: DOCUSATE SODIUM 100 MG CAPSULE PO SCH ×2 (08:09→20:53)
[2020-01-11] MEDS: FAMOTIDINE 20 MG TABLET PO SCH (08:09)
[2020-01-11] MEDS: APIXABAN 5 MG TABLET PO SCH ×2 (08:09→20:53)
[2020-01-11] MEDS: CIPROFLOXACIN 500 MG TABLET PO SCH ×2 (08:09→20:52)
[2020-01-11] MEDS: TIMOLOL 0.5% OPHTH DROPS BOTTLE 5ML OU SCH (08:15)
[2020-01-11] MEDS: BRIMONIDINE OPHTH DROPS 1 GTT BOTTLE 5ML OU SCH ×2 (08:15→20:54)
[2020-01-11] MEDS: LATANOPROST OPHTH DROPS 2.5ML BOTTLE OU SCH (08:15)
[2020-01-11 08:54] LABS: Anisocytosis 1+ (NONE SEEN); Lymphocytes % 20 % (15-49); Metamyelocytes % 1 % (0-0); Monocytes % (Manual) 5 % (1-12); Platelet Estimate NORMAL (NORMAL); Polychromasia 1+ (NONE SEEN); RBC Morphology NORMAL (NORMAL); Segmented Neutrophils % 74 % (38-78)
--- NOTE | 2020-01-11 10:13 | Internal Med Progress Note ---
SUBJECTIVE Subjective Patient information: Note initiated : 01/11/20 at 10:09 am Service Date, if different from initiated Date: [] Patient: Nu Coto a 84 y/o F admitted on 01/09/20 for Wound on buttocks. Chief Complaint: History of present illness: Ms. Coto is a 84 year old F with a history of DVT/PE on anticoagulation/HTN/glaucoma and sacral decubitus ulcer following a traumatic fall early December leading to hip fracture and was on the floor for 3 days until she was admitted to the hospital. She was discharged to [facility] for rehab following which she discharged home. She noticed her wound getting progressively worse and using foul smelling discharge. She follows up with Dr. Garcia wound care clinic. She was evaluated today at the wound care clinic and subsequently referred to the ER for admission and operative intervention/debridement of sacral decubiti. I discussed the case with Dr. Garcia who recommended admitting for 48 hours while she will undergo surgical intervention. Initial work-up in the ER was unremarkable with normal bicarb profile and no evidence of sepsis however urine drainage with foul-smelling necrotic decubitus ulcer noted. Hospitalist service was consulted for admission At the time of my evaluation patient is alert and respond to commands. She denies active distress. She endorses history as above. She denies subsequent trauma. She denies diarrhea, dysuria, fever, chills, shortness of breath 01/08-patient underwent debridements right buttock wound/abscess drainage/pulse lavage irrigation. No overnight events. No additional surgical nursing staff. Postoperatively doing well. On antibiotic coverage. Case discussed with Dr. Garcia. 01/09-patient doing well. Postop day 2. Tolerating diet. Sitting on chair. No overnight events. White count 6.8. Hemoglobin 10. Denies pain. No concerns expressed with nursing staff. Case management coordinate SNF transfer. -01/10-patient doing well. Ongoing wound care. Wound VAC placement today. Per wound care physician patient will require additional 48 hours before she can be transitioned to SNF. Continue ciprofloxacin based on cultures yielding Enterobacter/E. coli. Hemoglobin stable at 9.5. Constitutional Vitals: Vital Signs Temp Pulse Resp BP Pulse Ox 98.7 F 65 16 142/64 97 01/11/20 06:45 01/11/20 06:45 01/11/20 06:45 01/11/20 06:45 01/11/20 06:45 Period Temp Pulse Resp BP Sys/Muir Pulse Ox Last 24 Hr 98.1 F-99.2 F 65-83 -20 137-151/58-70 94-98 Intake and Output 01/10/20 01/11/20 01/11/20 21:59 05:59 13:59 Intake Total 1450 600 240 Output Total 500 600 Balance 950 0 240 Weight 76.793 kg Alert and sitting on chair No lymphedema nonlabored breathing Wound dressing ongoing per wound care Intake & Output: Intake & Output 01/10/20 01/11/20 01/11/20 21:59 05:59 13:59 Intake Total 1450 600 240 Output Total 500 600 Balance 950 0 240 Weight 76.793 kg Intake: IV 50 Oral 1400 600 240 Output: Void Amount 500 600 Other: Meal Dinner Breakfast Percent of Meal Consumed 75% 75% Feeding Ability Independent Assist with Tray Set Up Urine Appearance Clear Clear Urine Color Bright Yellow Bright Yellow Urine Odor Normal Normal # Voids 1 1 OBJ DATA Labs CBC & Chem 7: 01/11/20 05:30 01/11/20 05:30 Labs: Abnormal Lab Results 01/11/20 01/11/20 01/10/20 05:30 05:30 06:08 RBC 3.19 L Hgb 9.5 L Hct 29.3 L MCHC MPV Lymph # (Auto) Seg Neutrophils % Lymphocytes % Metamyelocytes % 1 H Polychromasia 1+ A Anisocytosis 1+ A ESR Carbon Dioxide 21 L Glucose 137 H Calcium 8.5 L 8.3 L Phosphorus 2.5 L Alkaline Phosphatase C-Reactive Protein Total Protein 5.8 L Albumin 2.9 L 3.1 L Albumin/Globulin Ratio Urine Occult Blood Urine WBC Urine Bacteria 01/10/20 01/09/20 01/09/20 06:08 05:35 05:35 RBC 3.30 L 2.53 L Hgb 10.0 L 7.7 L Hct 30.0 L 23.6 L MCHC MPV 10.9 H 10.6 H Lymph # (Auto) Seg Neutrophils % 83 H Lymphocytes % 14 L 10 L Metamyelocytes % Polychromasia Anisocytosis ESR 70 H Carbon Dioxide Glucose 108 H Calcium 8.5 L Phosphorus Alkaline Phosphatase C-Reactive Protein 5.6 H Total Protein 5.5 L Albumin 2.8 L Albumin/Globulin Ratio Urine Occult Blood Urine WBC Urine Bacteria 01/08/20 01/08/20 01/08/20 11:31 11:30 11:15 RBC 3.02 L Hgb 9.0 L Hct 29.6 L MCHC 30.4 L MPV 11.3 H Lymph # (Auto) 1.41 L Seg Neutrophils % Lymphocytes % Metamyelocytes % Polychromasia Anisocytosis ESR Carbon Dioxide Glucose Calcium Phosphorus Alkaline Phosphatase 128 H C-Reactive Protein 5.5 H Total Protein Albumin Albumin/Globulin Ratio 0.9 L Urine Occult Blood Trace A Urine WBC 82 H Urine Bacteria Mod A Meds: Medications Acetaminophen (Tylenol) 650 mg PO Q4-6HP PRN; Protocol PRN Reason: Per Pain Protocol/Fever > 101 Last Admin: 01/09/20 20:38 Dose: 650 mg Documented by: Apixaban (Eliquis) 5 mg PO BID [facility] Last Admin: 01/11/20 08:09 Dose: 5 mg Documented by: Bisacodyl (Dulcolax) [address] Q2-3DAYS PRN PRN Reason: Constipation Brimonidine Tartrate (Alphagan P Ophth Drops) 1 gtt OU BID [facility] Last Admin: 01/11/20 08:15 Dose: Not Given Documented by: Ciprofloxacin (Cipro) 500 mg PO BID [facility]; Protocol Last Admin: 01/11/20 08:09 Dose: 500 mg Documented by: Diltiazem HCl (Cardizem Cd) 180 mg PO DAILY [facility] Last Admin: 01/11/20 08:08 Dose: 180 mg Documented by: Docusate Sodium (Colace) 100 mg PO BID [facility] Last Admin: 01/11/20 08:09 Dose: 100 mg Documented by: Famotidine (Pepcid) 20 mg PO DAILY [facility] Last Admin: 01/11/20 08:09 Dose: 20 mg Documented by: [facility] Last Admin: 01/11/20 08:08 Dose: 325 mg Documented by: Hydralazine HCl (Apresoline) 10 mg IV Q4-6HP PRN PRN Reason: Hypertension Acetaminophen (Ofirmev) 650 mg in 65 mls @ 130 mls/hr IV Q6HP PRN; Protocol PRN Reason: Per Pain Protocol/Fever > 101 Magnesium Sulfate (Magnesium Sulfate) 2 gm in 50 mls @ 50 mls/hr IV UD PRN PRN Reason: MG = or < 1.7 Last Infusion: 01/10/20 14:55 Dose: Infused Documented by: Potassium Chloride 40 meq/ (Dextrose) 520 mls @ 130 mls/hr IV UD PRN PRN Reason: K+ = or < 3.5 Iron Carb/Multivit/[place]/Folic Acid (Multivitamin W/Minerals) 1 tab PO DAILY [facility] Last Admin: 01/11/20 08:08 Dose: 1 tab Documented by: Latanoprost (Xalatan Ophth Drops) 1 gtt OU QDAY [facility] Last Admin: 01/11/20 08:15 Dose: Not Given Documented by: Losartan Potassium (Cozaar) 50 mg PO BID [facility] Last Admin: 01/11/20 08:08 Dose: 50 mg Documented by: Melatonin (Melatonin 3mg Tablet) 3 mg PO HSP PRN PRN Reason: Insomnia Last Admin: 01/09/20 20:37 Dose: 3 mg Documented by: Metoprolol Tartrate (Lopressor) 5 mg IV Q5M PRN PRN Reason: Heart Rate > 140 bpm Ondansetron HCl (Zofran Odt) 4 mg SL Q4-6HP PRN; Protocol PRN Reason: Nausea And Vomiting Ondansetron HCl (Zofran) 4 mg IV Q4-6HP PRN; Protocol PRN Reason: Nausea And Vomiting Polyethylene Glycol (Miralax) 17 gm PO DAILYP PRN PRN Reason: Constipation Senna/Docusate Sodium (Senna Plus Tablet) 1 tab PO HS [facility] Last Admin: 01/10/20 19:54 Dose: 1 tab Documented by: Sodium Chloride (Saline Flush) 10 ml IV Q8 [facility] Last Admin: 01/11/20 04:52 Dose: Not Given Documented by: Timolol Maleate (Timoptic 0.5% Ophth Drops) 1 gtt OU QDAY [facility] Last Admin: 01/11/20 08:15 Dose: Not Given Documented by: A/P Narrative A/P Narrative: * Right sacral/buttock decubitus ulcer with necrosis and surrounding cellulitis- status post right buttock wound abscess drainage/pulse lavage irrigation. Ongoing wound care per wound physician wound VAC placement today. Polymicrobial culture including Enterobacter/E. coli. Continue oral ciprofloxacin based on cultures * MDR Enterobacter complicated UTI -continue ciprofloxacin * Anemia-status post 2 U PRBC transfusion. Hemoglobin 9.5 * History of PE -On Eliquis * Glaucoma continue latanoprost/timolol/brimonidine * History of atrial fibrillation continue diltiazem. On Eliquis * Hypertension continue losartan * GERD continue PPI Plan * Continue dietary interventions with high protein calorie supplements * Wound VAC/wound care management per Dr. Garcia * Ciprofloxacin based on culture sensitivities * Pre-existing medical condition management as above * PT OT nutrition support * Discharge planning per case management likely SNF in 48 hours Time Spent With Patient Time: Total time spent is greater than 50% in coordination of care (as documented) at patient's floor/unit and/or counseling patient: QUALITY VTE Deep Vein Thrombosis/Pulmonary Embolism Present on Admission: No
--- NOTE | 2020-01-11 13:40 | Internal Med Progress Note ---
SUBJECTIVE Subjective Patient information: Note initiated : 01/11/20 at 1:37 pm Service Date, if different from initiated Date: [] Patient: Nu Coto a 84 y/o F admitted on 01/09/20 for Wound on buttocks. Chief Complaint: [] Interval history: History of present illness: Ms. Coto is a 84 year old F with a history of DVT/PE on anticoagulation/HTN/glaucoma and sacral decubitus ulcer following a traumatic fall early December leading to hip fracture and was on the floor for 3 days until she was admitted to the hospital. She was discharged to [facility] for rehab following which she discharged home. She noticed her wound getting progressively worse and using foul smelling discharge. She follows up with Dr. Garcia wound care clinic. She was evaluated today at the wound care clinic and subsequently referred to the ER for admission and operative intervention/debridement of sacral decubiti. I discussed the case with Dr. Garcia who recommended admitting for 48 hours while she will undergo surgical intervention. Initial work-up in the ER was unremarkable with normal bicarb profile and no evidence of sepsis however urine drainage with foul-smelling necrotic decubitus ulcer noted. Hospitalist service was consulted for admission At the time of my evaluation patient is alert and respond to commands. She denies active distress. She endorses history as above. She denies subsequent trauma. She denies diarrhea, dysuria, fever, chills, shortness of breath 01/08-patient underwent debridements right buttock wound/abscess drainage/pulse lavage irrigation. No overnight events. No additional surgical nursing staff. Postoperatively doing well. On antibiotic coverage. Case discussed with Dr. Garcia. 01/09-patient doing well. Postop day 2. Tolerating diet. Sitting on chair. No overnight events. White count 6.8. Hemoglobin 10. Denies pain. No concerns expressed with nursing staff. Case management coordinate SNF transfer. -01/10-patient doing well. Ongoing wound care. Wound VAC placement today. Per wound care physician patient will require additional 48 hours before she can be transitioned to SNF. Continue ciprofloxacin based on cultures yielding Enterobacter/E. coli. Hemoglobin stable at 9.5. 01/11 Constitutional Vitals: Vital Signs Temp Pulse Resp BP Pulse Ox 98.6 F 68 14 140/65 96 01/11/20 11:19 01/11/20 11:19 01/11/20 11:19 01/11/20 11:19 01/11/20 11:19 Period Temp Pulse Resp BP Sys/Muir Pulse Ox Last 24 Hr 98.1 F-99.2 F 65-83 14-20 137-151/58-70 96-98 Intake and Output 01/10/20 01/11/20 01/11/20 21:59 05:59 13:59 Intake Total 1450 600 600 Output Total 500 600 Balance 950 0 600 Weight 76.793 kg 76.793 kg Patient Weight 01/12/20 05:59 Weight 76.793 kg Intake & Output: Intake & Output 01/10/20 01/11/20 01/11/20 21:59 05:59 13:59 Intake Total 1450 600 600 Output Total 500 600 Balance 950 0 600 Weight 76.793 kg 76.793 kg Intake: IV 50 Oral 1400 600 600 Output: Void Amount 500 600 Other: Meal Dinner Lunch Percent of Meal Consumed 75% 90 Feeding Ability Independent Assist with Tray Set Up Urine Appearance Clear Clear Urine Color Bright Yellow Bright Yellow Urine Odor Normal Normal # Voids 1 1 Exam: General: Alert, Awake, No acute Distress Eyes/N/T: EOMI, Head/Neck: neck supple, CV: RRR, No murmurs, Pulm: Clear b/l, no wheezing/rhonchi/rales Abd: soft, nontender, +BS x4 Ext: no clubbing/cyanosis/edema Neuro: Alert, no focal deficits, moves all extremities, Skin: warm/dry OBJ DATA Labs CBC & Chem 7: 01/11/20 05:30 01/11/20 05:30 Labs: Abnormal Lab Results 01/11/20 01/11/20 01/10/20 05:30 05:30 06:08 RBC 3.19 L Hgb 9.5 L Hct 29.3 L MPV Seg Neutrophils % Lymphocytes % Metamyelocytes % 1 H Polychromasia 1+ A Anisocytosis 1+ A ESR Carbon Dioxide 21 L Glucose 137 H Calcium 8.5 L 8.3 L Phosphorus 2.5 L C-Reactive Protein Total Protein 5.8 L Albumin 2.9 L 3.1 L 01/10/20 01/09/20 01/09/20 06:08 05:35 05:35 RBC 3.30 L 2.53 L Hgb 10.0 L 7.7 L Hct 30.0 L 23.6 L MPV 10.9 H 10.6 H Seg Neutrophils % 83 H Lymphocytes % 14 L 10 L Metamyelocytes % Polychromasia Anisocytosis ESR 70 H Carbon Dioxide Glucose 108 H Calcium 8.5 L Phosphorus C-Reactive Protein 5.6 H Total Protein 5.5 L Albumin 2.8 L Meds: Medications Acetaminophen (Tylenol) 650 mg PO Q4-6HP PRN; Protocol PRN Reason: Per Pain Protocol/Fever > 101 Last Admin: 01/09/20 20:38 Dose: 650 mg Documented by: Apixaban (Eliquis) 5 mg PO BID [facility] Last Admin: 01/11/20 08:09 Dose: 5 mg Documented by: Bisacodyl (Dulcolax) 10 mg OR Q2-3DAYS PRN PRN Reason: Constipation Brimonidine Tartrate (Alphagan P Ophth Drops) 1 gtt OU BID [facility] Last Admin: 01/11/20 08:15 Dose: Not Given Documented by: Ciprofloxacin (Cipro) 500 mg PO BID [facility]; Protocol Last Admin: 01/11/20 08:09 Dose: 500 mg Documented by: Diltiazem HCl (Cardizem Cd) 180 mg PO DAILY [facility] Last Admin: 01/11/20 08:08 Dose: 180 mg Documented by: Docusate Sodium (Colace) 100 mg PO BID [facility] Last Admin: 01/11/20 08:09 Dose: 100 mg Documented by: Famotidine (Pepcid) 20 mg PO DAILY [facility] Last Admin: 01/11/20 08:09 Dose: 20 mg Documented by: [facility] Last Admin: 01/11/20 08:08 Dose: 325 mg Documented by: Hydralazine HCl (Apresoline) 10 mg IV Q4-6HP PRN PRN Reason: Hypertension Acetaminophen (Ofirmev) 650 mg in 65 mls @ 130 mls/hr IV Q6HP PRN; Protocol PRN Reason: Per Pain Protocol/Fever > 101 Magnesium Sulfate (Magnesium Sulfate) 2 gm in 50 mls @ 50 mls/hr IV UD PRN PRN Reason: MG = or < 1.7 Last Infusion: 01/10/20 14:55 Dose: Infused Documented by: Potassium Chloride 40 meq/ (Dextrose) 520 mls @ 130 mls/hr IV UD PRN PRN Reason: K+ = or < 3.5 Iron Carb/Multivit/[place]/Folic Acid (Multivitamin W/Minerals) 1 tab PO DAILY [facility] Last Admin: 01/11/20 08:08 Dose: 1 tab Documented by: Latanoprost (Xalatan Ophth Drops) 1 gtt OU QDAY [facility] Last Admin: 01/11/20 08:15 Dose: Not Given Documented by: Losartan Potassium (Cozaar) 50 mg PO BID [facility] Last Admin: 01/11/20 08:08 Dose: 50 mg Documented by: Melatonin (Melatonin 3mg Tablet) 3 mg PO HSP PRN PRN Reason: Insomnia Last Admin: 01/09/20 20:37 Dose: 3 mg Documented by: Metoprolol Tartrate (Lopressor) 5 mg IV Q5M PRN PRN Reason: Heart Rate > 140 bpm Ondansetron HCl (Zofran Odt) 4 mg SL Q4-6HP PRN; Protocol PRN Reason: Nausea And Vomiting Ondansetron HCl (Zofran) 4 mg IV Q4-6HP PRN; Protocol PRN Reason: Nausea And Vomiting Polyethylene Glycol (Miralax) 17 gm PO DAILYP PRN PRN Reason: Constipation Senna/Docusate Sodium (Senna Plus Tablet) 1 tab PO HS [facility] Last Admin: 01/10/20 19:54 Dose: 1 tab Documented by: Sodium Chloride (Saline Flush) 10 ml IV Q8 [facility] Last Admin: 01/11/20 04:52 Dose: Not Given Documented by: Timolol Maleate (Timoptic 0.5% Ophth Drops) 1 gtt OU QDAY [facility] Last Admin: 01/11/20 08:15 Dose: Not Given Documented by: A/P Narrative A/P Narrative: A: *Right sacral/buttock decubitus ulcer with necrosis and surrounding cellulitis: s/p abscess drainage/pulse lavage irrigation -Polymicrobial culture including Enterobacter/E. coli. *MDR Enterobacter complicated UTI: *Anemia: s/p 2PRBC. Hemoglobin 9.5 *History of PE: On Eliquis *h/o AFib: On Eliquis *Glaucoma continue latanoprost/timolol/brimonidine *Hypertension continue losartan *GERD: continue PPI Plan: -Continue dietary interventions with high protein calorie supplements -Wound VAC/wound care management per Dr. Garcia -Ciprofloxacin based on culture sensitivities -PT OT nutrition support -ppx: NOAC Time Spent With Patient Time: Total time spent is greater than 50% in coordination of care (as documented) at patient's floor/unit and/or counseling patient: QUALITY VTE Deep Vein Thrombosis/Pulmonary Embolism Present on Admission: No
--- NOTE | 2020-01-11 16:13 | General Surgery Progress Note ---
SUBJECTIVE Subjective Patient information: Note initiated : 01/11/20 at 4:05 pm Service Date, if different from initiated Date: [] Patient: Nu Coto 84 y/o F admitted on 01/09/20 for Wound on buttocks. Chief Complaint: [] Additional PMFSH (Level 3 Only): Saw patient on rounds with Radha HEREDIA, Wound Care Nurse. Primary dressings taken down and wounds examined. Lab results reviewed. Progress and plan discussed with Dr. Schmitz, hospitalist physician. Constitutional Vitals: Vital Signs Temp Pulse Resp BP Pulse Ox 98.2 F 77 16 144/70 98 01/11/20 16:00 01/11/20 16:00 01/11/20 16:00 01/11/20 16:00 01/11/20 16:00 Period Temp Pulse Resp BP Sys/Muir Pulse Ox Last 24 Hr 98.1 F-99.2 F 65-83 14-20 137-151/58-70 96-98 Intake and Output 01/11/20 01/11/20 01/11/20 05:59 13:59 21:59 Intake Total 600 600 480 Output Total 600 300 Balance 0 300 480 Weight 169 lb 4.8 oz Patient Weight 01/12/20 05:59 Weight 169 lb 4.8 oz Intake & Output: Intake & Output 01/11/20 01/11/20 01/11/20 05:59 13:59 21:59 Intake Total 600 600 480 Output Total 600 300 Balance 0 300 480 Weight 169 lb 4.8 oz Intake: Oral 600 600 480 Output: Void Amount 600 300 Other: Meal Lunch Percent of Meal Consumed 90 Feeding Ability Assist with Tray Set Up Urine Appearance Clear Clear Urine Color Bright Yellow Bright Yellow Urine Odor Normal Strong # Voids 1 Exam: AVSS, No changes in CARLYN. L/E. Right buttock wound is Stage 2. Granulating well. Left buttock wound is complex and close to midline. Wound VAC started today. Lab results c/s reviewed. Patient transitioned to PO antibiotics based on c/s reports. Tolerateing physical therapy. A/P Narrative A/P Narrative: Assessment: Satisfactory post surgical progress. Wound VAC started today. Plan: Agree with PO antibiotics and Physical therapy. FWB. Anticipate ready for discharge to a SNF or Rehab by 01/13/2020 CM to talk to family and emphasize need for close supervision UNTIL wounds are fully healed. Discharge recommendations based on healing of wounds. Time Spent With Patient Time: Total time spent is greater than 50% in coordination of care (as documented) at patient's floor/unit and/or counseling patient: Total time spent with greater than 50% in coordination of care (as documented) at patient's floor/unit and/or counseling patient:: 15 - 24 minutes
[2020-01-11] MEDS: SENNOSIDES/DOCUSATE SODIUM 1 TAB TABLET PO SCH (20:52)
[2020-01-11] MEDS: MELATONIN 3 MG TABLET PO PRN (20:53)
[2020-01-11] MEDS: ACETAMINOPHEN 325 MG TABLET PO PRN (20:53)
[2020-01-12] MEDS: 0.9 % SODIUM CHLORIDE 10 ML SYRINGE IV SCH ×3 (06:09→21:14)
--- NOTE | 2020-01-12 07:11 | Internal Med Progress Note ---
SUBJECTIVE Subjective Patient information: Note initiated : 01/12/20 at 7:09 am Service Date, if different from initiated Date: [] Patient: Nu Coto a 84 y/o F admitted on 01/09/20 for Wound on buttocks. Chief Complaint: [] Interval history: History of present illness: Ms. Coot is a 84 year old F with a history of DVT/PE on anticoagulation/HTN/glaucoma and sacral decubitus ulcer following a traumatic fall early December leading to hip fracture and was on the floor for 3 days until she was admitted to the hospital. She was discharged to [facility] for rehab following which she discharged home. She noticed her wound getting progressively worse and using foul smelling discharge. She follows up with Dr. Garcia wound care clinic. She was evaluated today at the wound care clinic and subsequently referred to the ER for admission and operative intervention/debridement of sacral decubiti. I discussed the case with Dr. Garcia who recommended admitting for 48 hours while she will undergo surgical intervention. Initial work-up in the ER was unremarkable with normal bicarb profile and no evidence of sepsis however urine drainage with foul-smelling necrotic decubitus ulcer noted. Hospitalist service was consulted for admission At the time of my evaluation patient is alert and respond to commands. She denies active distress. She endorses history as above. She denies subsequent trauma. She denies diarrhea, dysuria, fever, chills, shortness of breath 01/08-patient underwent debridements right buttock wound/abscess drainage/pulse lavage irrigation. No overnight events. No additional surgical nursing staff. Postoperatively doing well. On antibiotic coverage. Case discussed with Dr. Garcia. 01/09-patient doing well. Postop day 2. Tolerating diet. Sitting on chair. No overnight events. White count 6.8. Hemoglobin 10. Denies pain. No concerns expressed with nursing staff. Case management coordinate SNF transfer. -01/10-patient doing well. Ongoing wound care. Wound VAC placement today. Per wound care physician patient will require additional 48 hours before she can be transitioned to SNF. Continue ciprofloxacin based on cultures yielding Enterobacter/E. coli. Hemoglobin stable at 9.5. 01/11 No overnight events or new complaints. Waiting placement. Review of Systems: denies headache/fever/chills/nausea/vomiting/chest or abdominal pain/cough/dyspnea/diarrhea. Otherwise see above. Constitutional Vitals: Vital Signs Temp Pulse Resp BP Pulse Ox 97.6 F 96 H 16 140/77 96 01/12/20 03:18 01/12/20 03:18 01/12/20 03:18 01/12/20 03:18 01/12/20 03:18 Period Temp Pulse Resp BP Sys/Muir Pulse Ox Last 24 Hr 97.6 F-98.6 F 68-96 14-16 140-156/65-79 96-98 Intake and Output 01/11/20 01/12/20 01/12/20 21:59 05:59 13:59 Intake Total 480 350 Balance 480 350 Weight 77.791 kg Intake & Output: Intake & Output 01/11/20 01/12/20 01/12/20 21:59 05:59 13:59 Intake Total 480 350 Balance 480 350 Weight 77.791 kg Intake: Oral 480 350 Other: Meal Dinner Percent of Meal Consumed 25% Urine Color Bright Yellow # Voids 1 1 Exam: General: Alert, Awake, No acute Distress Eyes/N/T: EOMI, Head/Neck: neck supple, CV: RRR, No murmurs, Pulm: Clear b/l, no wheezing/rhonchi/rales Abd: soft, nontender, +BS x4 Ext: no clubbing/cyanosis/edema Neuro: Alert, no focal deficits, moves all extremities, Skin: warm/dry OBJ DATA Labs CBC & Chem 7: 01/12/20 06:05 01/12/20 06:05 Labs: Abnormal Lab Results 01/11/20 01/11/20 01/10/20 05:30 05:30 06:08 RBC 3.19 L Hgb 9.5 L Hct 29.3 L MPV Seg Neutrophils % Lymphocytes % Metamyelocytes % 1 H Polychromasia 1+ A Anisocytosis 1+ A ESR Carbon Dioxide 21 L Glucose 137 H Calcium 8.5 L 8.3 L Phosphorus 2.5 L C-Reactive Protein Total Protein 5.8 L Albumin 2.9 L 3.1 L 01/10/20 01/09/20 01/09/20 06:08 05:35 05:35 RBC 3.30 L Hgb 10.0 L Hct 30.0 L MPV 10.9 H Seg Neutrophils % 83 H Lymphocytes % 14 L 10 L Metamyelocytes % Polychromasia Anisocytosis ESR 70 H Carbon Dioxide Glucose 108 H Calcium 8.5 L Phosphorus C-Reactive Protein 5.6 H Total Protein 5.5 L Albumin 2.8 L Meds: Medications Acetaminophen (Tylenol) 650 mg PO Q4-6HP PRN; Protocol PRN Reason: Per Pain Protocol/Fever > 101 Last Admin: 01/11/20 20:53 Dose: 650 mg Documented by: Apixaban (Eliquis) 5 mg PO BID [facility] Last Admin: 01/11/20 20:53 Dose: 5 mg Documented by: Bisacodyl (Dulcolax) 10 mg NM Q2-3DAYS PRN PRN Reason: Constipation Brimonidine Tartrate (Alphagan P Ophth Drops) 1 gtt OU BID [facility] Last Admin: 01/11/20 20:54 Dose: Not Given Documented by: Ciprofloxacin (Cipro) 500 mg PO BID [facility]; Protocol Last Admin: 01/11/20 20:52 Dose: 500 mg Documented by: Diltiazem HCl (Cardizem Cd) 180 mg PO DAILY [facility] Last Admin: 01/11/20 08:08 Dose: 180 mg Documented by: Docusate Sodium (Colace) 100 mg PO BID [facility] Last Admin: 01/11/20 20:53 Dose: 100 mg Documented by: Famotidine (Pepcid) 20 mg PO DAILY [facility] Last Admin: 01/11/20 08:09 Dose: 20 mg Documented by: [facility] Admin: 01/11/20 18:30 Dose: 325 mg Documented by: Hydralazine HCl (Apresoline) 10 mg IV Q4-6HP PRN PRN Reason: Hypertension Acetaminophen (Ofirmev) 650 mg in 65 mls @ 130 mls/hr IV Q6HP PRN; Protocol PRN Reason: Per Pain Protocol/Fever > 101 Magnesium Sulfate (Magnesium Sulfate) 2 gm in 50 mls @ 50 mls/hr IV UD PRN PRN Reason: MG = or < 1.7 Last Infusion: 01/10/20 14:55 Dose: Infused Documented by: Potassium Chloride 40 meq/ (Dextrose) 520 mls @ 130 mls/hr IV UD PRN PRN Reason: K+ = or < 3.5 Iron Carb/Multivit/[place]/Folic Acid (Multivitamin W/Minerals) 1 tab PO DAILY [facility] Last Admin: 01/11/20 08:08 Dose: 1 tab Documented by: Latanoprost (Xalatan Ophth Drops) 1 gtt OU QDAY [facility] Last Admin: 01/11/20 08:15 Dose: Not Given Documented by: Losartan Potassium (Cozaar) 50 mg PO BID [facility] Last Admin: 01/11/20 20:53 Dose: 50 mg Documented by: Melatonin (Melatonin 3mg Tablet) 3 mg PO HSP PRN PRN Reason: Insomnia Last Admin: 01/11/20 20:53 Dose: 3 mg Documented by: Metoprolol Tartrate (Lopressor) 5 mg IV Q5M PRN PRN Reason: Heart Rate > 140 bpm Ondansetron HCl (Zofran Odt) 4 mg SL Q4-6HP PRN; Protocol PRN Reason: Nausea And Vomiting Ondansetron HCl (Zofran) 4 mg IV Q4-6HP PRN; Protocol PRN Reason: Nausea And Vomiting Polyethylene Glycol (Miralax) 17 gm PO DAILYP PRN PRN Reason: Constipation Senna/Docusate Sodium (Senna Plus Tablet) 1 tab PO HS [facility] Last Admin: 01/11/20 20:52 Dose: 1 tab Documented by: Sodium Chloride (Saline Flush) 10 ml IV Q8 [facility] Last Admin: 01/12/20 06:09 Dose: Not Given Documented by: Timolol Maleate (Timoptic 0.5% Ophth Drops) 1 gtt OU QDAY [facility] Last Admin: 01/11/20 08:15 Dose: Not Given Documented by: A/P Narrative A/P Narrative: A: *Right sacral/buttock decubitus ulcer with necrosis and surrounding cellulitis: s/p abscess drainage/pulse lavage irrigation -Polymicrobial culture including Enterobacter/E. coli. *MDR Enterobacter complicated UTI: *Anemia: s/p 2PRBC. Hemoglobin 9.5 *History of PE: On Eliquis *h/o AFib: On Eliquis *Glaucoma continue latanoprost/timolol/brimonidine *Hypertension continue losartan *GERD: continue PPI Plan: -Continue dietary interventions with high protein calorie supplements -Wound VAC/wound care management per Dr. Garcia -Ciprofloxacin based on culture sensitivities -PT OT nutrition support -ppx: NOAC Time Spent With Patient Time: Total time spent is greater than 50% in coordination of care (as documented) at patient's floor/unit and/or counseling patient: QUALITY VTE Deep Vein Thrombosis/Pulmonary Embolism Present on Admission: No
[2020-01-12] MEDS: FAMOTIDINE 20 MG TABLET PO SCH (08:12)
[2020-01-12] MEDS: DILTIAZEM 180 MG CAP.XL.24H PO SCH (08:12)
[2020-01-12] MEDS: LOSARTAN 50 MG TABLET PO SCH ×2 (08:12→21:14)
[2020-01-12] MEDS: FERROUS SULFATE 325 MG TABLET PO SCH ×2 (08:12→17:14)
[2020-01-12] MEDS: CIPROFLOXACIN 500 MG TABLET PO SCH ×2 (08:13→21:14)
[2020-01-12] MEDS: DOCUSATE SODIUM 100 MG CAPSULE PO SCH ×2 (08:13→21:14)
[2020-01-12] MEDS: MULTIVIT,THER IRON,CA,FA & MIN 1 TABLET PO SCH (08:13)
[2020-01-12] MEDS: BRIMONIDINE OPHTH DROPS 1 GTT BOTTLE 5ML OU SCH ×2 (08:13→21:04)
[2020-01-12] MEDS: APIXABAN 5 MG TABLET PO SCH ×2 (08:13→21:14)
[2020-01-12] MEDS: LATANOPROST OPHTH DROPS 2.5ML BOTTLE OU SCH (08:14)
[2020-01-12] MEDS: TIMOLOL 0.5% OPHTH DROPS BOTTLE 5ML OU SCH (08:14)
[2020-01-12 08:17] LABS: Hematocrit 33.6 % (34.1-44.9); Hemoglobin 10.7 g/dL (11.2-15.7); Mean Cell Volume 93.6 fL (80.0-100.0); Mean Corpuscular HGB Conc 31.8 g/dL (31.0-36.0); Mean Platelet Volume 10.1 fL (7.4-10.4); Platelet Count 229 K/mcL (140-440); RBC 3.59 M/mcL (3.59-5.38); Red Cell Distribution Width 14.5 % (11.5-14.5)
[2020-01-12 08:29] LABS: ALT/SGPT 14 U/l (0-40); AST/SGOT 20 U/l (0-37); Albumin 2.9 gm/dL (3.2-5.2); Alkaline Phosphatase 98 U/L (39-117); Bilirubin,Direct < 0.2 mg/dL (0.0-0.3); Bilirubin,Total 0.3 mg/dL (0.0-1.0); Blood Urea Nitrogen 14 mg/dl (8-23); Calcium 8.6 mg/dl (8.6-10.4); Carbon Dioxide 25 mmol/L (22-30); Chloride 104 mmol/L (96-108); Globulin 2.9 gm/dL (2.2-3.7); Glomerular Filtration Rate 79; Glucose 89 mg/dL (70-105); Lactate Dehydrogenase 192 U/L (94-250); Phosphorous 2.7 mg/dL (2.7-4.5); Triglycerides 152 mg/dl (<150); Uric Acid 4.1 mg/dL (2.5-8.0)
[2020-01-12 08:57] LABS: Eosinophils % (Manual) 1 % (0-7); Lymphocytes % 21 % (15-49); Monocytes % (Manual) 14 % (1-12); Platelet Estimate NORMAL (NORMAL); RBC Morphology NORMAL (NORMAL); Segmented Neutrophils % 64 % (38-78)
--- NOTE | 2020-01-12 11:11 | Discharge Summary ---
Discharge Provider Provider Patient information: Note initiated : 01/12/20 at 11:08 am Service Date, if different from initiated Date: [] Patient: Nu Coto 84 y/o F admitted on 01/09/20 for Wound on buttocks. Chief Complaint: [] Date of admission: 01/09/20 16:24 Discharge date: 01/12/20 Primary care physician: Mar Hanna Consults: 01/08/20 13:29 Consult to Physician [CONS] Stat Comment: Consulting Provider: Clement Schmitz Reason For Exam: Physician to Consult 01/08/20 18:38 Consult to Physician [CONS] Routine Comment: Consulting Provider: Jero Garcia Reason For Exam: Physician to Consult Discharge Meds Discharge Medications Home Medications apixaban [Eliquis] 5 mg PO BID 01/08/20 [History Confirmed 01/08/20 Last Taken Unknown] brimonidine 1 drp OPHTHALMIC (EYE) BID 01/08/20 [History Confirmed 01/08/20 Last Taken Unknown] diltiazem HCl 180 mg PO QAM 01/08/20 [History Confirmed 01/08/20 Last Taken Unknown] famotidine [Acid Retail Sales Assistant (famotidine)] 20 mg PO DAILY 01/08/20 [History Confirm ed 01/08/20 Last Taken Unknown] ferrous sulfate [FeroSul] 325 mg PO BID 01/08/20 [History Confirmed 01/08/20 Last Taken Unknown] latanoprost 1 drp OPHTHALMIC (EYE) QDAY 01/08/20 [History Confirmed 01/08/20 Last Taken Unknown] losartan 50 mg PO BID 01/08/20 [History Confirmed 01/08/20 Last Taken Unknown] polyethylene glycol 3350 [Miralax] 17 g PO QDAY 01/08/20 [History Confirmed 01/08/20 Last Taken Unknown] timolol maleate 1 drp OPHTHALMIC (EYE) QDAY 01/08/20 [History Confirmed 01/08/20 Last Taken Unknown] Lactobacillus acidophilus 2,000 mmu cells PO BID #40 cap 01/12/20 [Rx Last Taken Unknown] ciprofloxacin HCl 500 mg PO BID #10 tab 01/12/20 [Rx Last Taken Unknown] COURSE Hospital Course Hospital course: History of present illness: Ms. Coto is a 84 year old F with a history of DVT/PE on anticoagulation/HTN/glaucoma and sacral decubitus ulcer following a traumatic fall early December leading to hip fracture and was on the floor for 3 days until she was admitted to the hospital. She was discharged to [facility] for rehab following which she discharged home. She noticed her wound getting progressively worse and using foul smelling discharge. She follows up with Dr. Garcia wound care clinic. She was evaluated today at the wound care clinic and subsequently referred to the ER for admission and operative intervention/debridement of sacral decubiti. I discussed the case with Dr. Garcia who recommended admitting for 48 hours while she will undergo surgical intervention. Initial work-up in the ER was unremarkable with normal bicarb profile and no evidence of sepsis however urine drainage with foul-smelling necrotic decubitus ulcer noted. Hospitalist service was consulted for admission At the time of my evaluation patient is alert and respond to commands. She denies active distress. She endorses history as above. She denies subsequent trauma. She denies diarrhea, dysuria, fever, chills, shortness of breath 01/08-patient underwent debridements right buttock wound/abscess drainage/pulse lavage irrigation. No overnight events. No additional surgical nursing staff. Postoperatively doing well. On antibiotic coverage. Case discussed with Dr. Garcia. 01/09-patient doing well. Postop day 2. Tolerating diet. Sitting on chair. No overnight events. White count 6.8. Hemoglobin 10. Denies pain. No concerns expressed with nursing staff. Case management coordinate SNF transfer. -01/10-patient doing well. Ongoing wound care. Wound VAC placement today. Per wound care physician patient will require additional 48 hours before she can be transitioned to SNF. Continue ciprofloxacin based on cultures yielding Enterobacter/E. coli. Hemoglobin stable at 9.5. 01/11 No overnight events or new complaints. Waiting placement. Stable for discharge. A: *Right sacral/buttock decubitus ulcer with necrosis and surrounding cellulitis: s/p abscess drainage/pulse lavage irrigation -Polymicrobial culture including Enterobacter/E. coli. *MDR Enterobacter complicated UTI: *Anemia: s/p 2PRBC. Hemoglobin 9.5 *History of PE: On Eliquis *h/o AFib: On Eliquis *Glaucoma continue latanoprost/timolol/brimonidine *Hypertension continue losartan *GERD: continue PPI Discharge diagnosis: Right Libia buttocks decubitus ulcer with necrosis and colitis Secondary discharge diagnosis: Complicated UTI anemia history of PE history of atrial fibrillation glaucoma hypertension GERD Time Spent with Patient Time attestation: Total time spent providing and/or coordinating discharge services: Time spent: Greater than 30 minutes EXAM Constitutional Vitals: Temp Pulse Resp BP Pulse Ox 97.3 F 95 H 16 143/68 96 01/12/20 08:00 01/12/20 08:00 01/12/20 08:42 01/12/20 08:00 01/12/20 08:00 Discharge Data Data Completed and Pending Labs on day of discharge: Labs from last 24 hours 01/12/20 01/12/20 06:05 06:05 WBC 6.0 RBC 3.59 Hgb 10.7 L Hct 33.6 L MCV 93.6 MCH 29.8 MCHC 31.8 RDW 14.5 Plt Count 229 MPV 10.1 Total Counted 100 Seg Neutrophils % 64 Band Neutrophils % Not Reportable Lymphocytes % 21 Monocytes % (Manual) 14 H Eosinophils % (Manual) 1 Platelet Estimate Normal RBC Morphology Normal Sodium 141 Potassium 3.4 Chloride 104 Carbon Dioxide 25 Anion Gap 12.0 BUN 14 Creatinine 0.7 GFR Calculation 79 Glucose 89 Uric Acid 4.1 Calcium 8.6 Phosphorus 2.7 Magnesium 1.6 Total Bilirubin 0.3 Direct Bilirubin < 0.2 GGT 23 AST 20 ALT 14 Alkaline Phosphatase 98 Lactate Dehydrogenase 192 Total Protein 5.8 L Albumin 2.9 L Globulin 2.9 Albumin/Globulin Ratio 1.0 Triglycerides 152 H Preliminary micro results at discharge 01/09/20 12:32 Anaerobic Culture - Preliminary Buttock - Left Tissue Culture - Preliminary Gram positive cocci Gram negative bacillus Discharge Plan Patient/Caregiver Discharge Instructions Activity: as per physical therapy Diet: Regular Diet Prescriptions: New ciprofloxacin HCl 500 mg Tablet 500 mg PO BID Qty: 10 RF: 0 Lactobacillus acidophilus Capsule 2,000 mmu cells PO BID Qty: 40 RF: 0 No Action polyethylene glycol 3350 [Miralax] 17 gram Powder In Packet 17 g PO QDAY RF: 0 diltiazem HCl 180 mg Capsule,Extended Release 24 Hr 180 mg PO QAM RF: 0 ferrous sulfate [FeroSul] 325 mg (65 mg iron) Tablet 325 mg PO BID RF: 0 losartan 50 mg Tablet 50 mg PO BID RF: 0 famotidine [Acid Retail Sales Assistant (famotidine)] 20 mg tablet 20 mg PO DAILY RF: 0 latanoprost 0.005 % Drops 1 drp OPHTHALMIC (EYE) QDAY RF: 0 brimonidine 0.2 % Drops 1 drp OPHTHALMIC (EYE) BID RF: 0 timolol maleate 0.5 % Drops 1 drp OPHTHALMIC (EYE) QDAY RF: 0 Eliquis 5 mg tablet 5 mg PO BID RF: 0 Follow Up Plan Follow up with: Mar Hanna MD [Primary Care Provider] - Jero Garcia MD [Physician] - Patient Disposition: Xfer SNF Prognosis: Good Rehab Potential: Fair I certify that the patient requires SNF services: Yes Overall status at discharge: patient is progressing back to baseline Discharge Orders: Discharge Order (Routine); Ordered 01/12/20 Ordered By: Jose Marshall [facility] VTE Deep Vein Thrombosis/Pulmonary Embolism Present on Admission: No
--- NOTE | 2020-01-12 11:15 | Surgical Pathology Report ---
HISTOLOGY SPECIMEN MICROSCOPIC DIAGNOSIS SOFT TISSUE, LEFT BUTTOCKS, DEBRIDEMENT: -- DENSE ACUTE INFLAMMATION WITH FAT NECROSIS, GRANULATION TISSUE, FIBROSIS AND HEMORRHAGE. -- SMALL VESSEL ATHEROSCLEROSIS WITH MODERATE LUMINAL NARROWING AND CALCIFICATION OF WALL. -- NO NEOPLASIA OR MALIGNANCY IDENTIFIED. (ACP:sln) PROCEDURAL IMPRESSION Non-healing wound. GROSS DESCRIPTION Received in formalin designated left buttock abscess, is a 3.5 x 3.7 by up to 2 cm purple-ocasio to yellow-green soft tissue fragment. Grossly no skin is identified. Section Beamer sections submitted - three cassettes. (STS:adj) Electronically Signed by: Alexander Downs M.D.
[2020-01-12] MEDS: SENNOSIDES/DOCUSATE SODIUM 1 TAB TABLET PO SCH (21:14)
[2020-01-12] MEDS: MELATONIN 3 MG TABLET PO PRN (21:14)
[2020-01-13] MEDS: 0.9 % SODIUM CHLORIDE 10 ML SYRINGE IV SCH (05:55)
[2020-01-13 07:37] LABS: Hematocrit 33.1 % (34.1-44.9); Hemoglobin 10.3 g/dL (11.2-15.7); Mean Cell Volume 95.7 fL (80.0-100.0); Mean Corpuscular HGB Conc 31.1 g/dL (31.0-36.0); Mean Platelet Volume 10.2 fL (7.4-10.4); Platelet Count 214 K/mcL (140-440); RBC 3.46 M/mcL (3.59-5.38); Red Cell Distribution Width 14.3 % (11.5-14.5); WBC 6.7 K/mcL (4.50-11.00)
[2020-01-13 08:02] LABS: ALT/SGPT 15 U/l (0-40); AST/SGOT 19 U/l (0-37); Albumin 2.9 gm/dL (3.2-5.2); Albumin/Globulin Ratio 1.1 (1.0-2.3); Alkaline Phosphatase 96 U/L (39-117); Bilirubin,Direct < 0.2 mg/dL (0.0-0.3); Bilirubin,Total 0.3 mg/dL (0.0-1.0); Blood Urea Nitrogen 19 mg/dl (8-23); Calcium 8.7 mg/dl (8.6-10.4); Carbon Dioxide 25 mmol/L (22-30); Chloride 105 mmol/L (96-108); Globulin 2.7 gm/dL (2.2-3.7); Glomerular Filtration Rate 79; Glucose 93 mg/dL (70-105); Lactate Dehydrogenase 194 U/L (94-250); Phosphorous 3.2 mg/dL (2.7-4.5); Triglycerides 118 mg/dl (<150); Uric Acid 3.9 mg/dL (2.5-8.0)
[2020-01-13 08:21] LABS: Basophils % (Manual) 1 % (0-2); Eosinophils % (Manual) 2 % (0-7); Lymphocytes % 19 % (15-49); Metamyelocytes % 1 % (0-0); Monocytes % (Manual) 9 % (1-12); Platelet Estimate NORMAL (NORMAL); RBC Morphology NORMAL (NORMAL); Segmented Neutrophils % 68 % (38-78)
[2020-01-13] MEDS: APIXABAN 5 MG TABLET PO SCH (09:06)
[2020-01-13] MEDS: DILTIAZEM 180 MG CAP.XL.24H PO SCH (09:06)
[2020-01-13] MEDS: DOCUSATE SODIUM 100 MG CAPSULE PO SCH (09:06)
[2020-01-13] MEDS: LOSARTAN 50 MG TABLET PO SCH (09:07)
[2020-01-13] MEDS: FERROUS SULFATE 325 MG TABLET PO SCH (09:07)
[2020-01-13] MEDS: CIPROFLOXACIN 500 MG TABLET PO SCH (09:07)
[2020-01-13] MEDS: FAMOTIDINE 20 MG TABLET PO SCH (09:07)
[2020-01-13] MEDS: MULTIVIT,THER IRON,CA,FA & MIN 1 TABLET PO SCH (09:07)
[2020-01-13] MEDS: TIMOLOL 0.5% OPHTH DROPS BOTTLE 5ML OU SCH (09:08)
[2020-01-13] MEDS: LATANOPROST OPHTH DROPS 2.5ML BOTTLE OU SCH (09:08)
[2020-01-13] MEDS: BRIMONIDINE OPHTH DROPS 1 GTT BOTTLE 5ML OU SCH (09:08)
[2020-01-13] MEDS: MAGNESIUM SULFATE 2 GM/50 ML BAG IV PRN (13:04)
== END 2020-01-13 14:25 | DRG 571 ==
LOC: ED 10:38 → INTOOBSV 14:20 → MEDSUR 14:20
PROVIDERS: ADMIT Internal Medicine; ATTEND Internal Medicine

== ENCOUNTER 2022-11-03 18:08 | Inpatient (IN) ==
[~2022-11-03 18:08] MED LIST: DEXAMETHASONE 10 MG/ML VIAL ONE; KETAMINE 50 MG/ML Syringe (ANEST) IV ONE; LIDOCAINE HCL/PF 100 MG/5 ML SYRINGE IV ONE; MAGNESIUM SULFATE 2 GM/50 ML BAG IV ONE; ONDANSETRON 4 MG/2 ML VIAL ONE; PHENYLephrine 1 MG/10 ML SYRINGE (ANEST) ONE; PROPOFOL 200 MG/20 ML VIAL IV ONE
[2022-11-03] MEDS ORDERED: POTASSIUM CHLORIDE 20 MEQ TABLET PO PRN ×2 (18:57)
[2022-11-03] MEDS ORDERED: SENNOSIDES 1 TABLET PO PRN (18:57)
[2022-11-03] MEDS ORDERED: METOPROLOL TARTRATE 5 MG/5 ML VIAL IV PRN (18:57)
[2022-11-03] MEDS ORDERED: POLYETHYLENE GLYCOL 3350 17 GM PACKET PO PRN (18:57)
[2022-11-03] MEDS ORDERED: MAGNESIUM SULFATE 2 GM/50 ML BAG IV PRN (18:57)
[2022-11-03] MEDS ORDERED: IPRATROPIUM/ALBUTEROL 3 ML AMPUL.NEB NEB PRN (18:57)
[2022-11-03] MEDS ORDERED: ONDANSETRON 4 MG/2 ML VIAL IV PRN (18:57)
[2022-11-03] MEDS ORDERED: POTASSIUM CHLORIDE 40 MEQ in DEXTROSE 5% IN WATER 500 ML IV PRN (18:57)
[2022-11-03] MEDS ORDERED: ACETAMINOPHEN 325 MG TABLET PO PRN (18:57)
--- NOTE | 2022-11-03 18:57 | Internal Med History&Physical ---
HPI History of Present Illness Patient information: Note initiated : 11/03/22 at 6:54 pm Service Date, if different from initiated Date: [] Patient: Nu Coto a 87 y/o F admitted on for Hip Fx. Chief Complaint: [] History of present illness: Ms. Coto is a 87 year old F Presents to [place] after a fall. Fall occurred yesterday afternoon she was at home tripped and fell onto her right hip. Patient says she was getting up to go the bathroom was in a hurry and lost her balance and fell. Was then not able to get off the floor remained on the floor overnight until a family member stop by and found her on the floor and called EMS. Work-up in ED revealed rightside hip fracture. Dr. Hamlin was contacted. She was supposed to be off of her Eliquis per PCP because of falls but sounds like she may have been taking it. Sounds like sure dementia has been getting worse and she has had to rely on a friend help take care of her activities of daily living. Review of Systems: Pertinent positives as above. Denies headache/fever/chills/[place]/vomiting/chest or abdominal pain/cough/dyspnea/diarrhea. Remaining 10 point review of system reviewed negative PHYSICAL EXAM General: Alert, Awake, No acute Distress Eyes/N/T: EOMI, no scleral icterus, PERRL, MM Head/Neck: neck supple, full ROM, normocephalic atraumatic CV: Regular RR, No murmurs, normal s1/s2 Pulm: Clear b/l, no wheezing/rhonchi/rales, no respiratory distress Abd: soft, nontender, +BS x4 Ext: no clubbing/cyanosis/edema, nontender Neuro: Alert, CN 2-12 grossly intact, no focal deficits, moves all extremities, , sensations intact b/l upper/lower Psychiatric: Skin: warm/dry, normal color PFSH PFSH All Active Problems Left femoral shaft fracture (Acute) Pulmonary embolism (Acute) History of hip surgery (Acute) Elevated LFTs (Acute) Pressure ulcer (Acute) Anemia (Acute) Atrial fibrillation (Acute) Stage 3 chronic kidney disease (Acute) Hypertension (Acute) Fall (Acute) History of hip surgery (Acute) Medical History (Updated 04/24/21 @ 10:53 by Cellabus MD) Dehydration Left femoral shaft fracture Rhabdomyolysis Social History smoking status: Never smoker MEDS/ALLERGIES Home Medications and Allergies Home Medications Medication Instructions Recorded Confirmed Type apixaban 5 mg tablet (Eliquis) 5 mg PO BID 01/08/20 11/03/22 History brimonidine 0.2 % eye drops 1 drp ophthalmic (eye) BID 01/08/20 11/03/22 History diltiazem HCl 180 mg capsule,24 180 mg PO QAM 01/08/20 11/03/22 History hr,extended release famotidine 20 mg tablet (Acid 20 mg PO DAILY 01/08/20 11/03/22 History Carbon Brushes Assembler (famotidine)) ferrous sulfate 325 mg (65 mg 325 mg PO BID 01/08/20 11/03/22 History iron) tablet (FeroSul) latanoprost 0.005 % eye drops 1 drp ophthalmic (eye) QDAY 01/08/20 11/03/22 History losartan 50 mg tablet 50 mg PO BID 01/08/20 11/03/22 History polyethylene glycol 3350 17 gram 17 g PO QDAY 01/08/20 11/03/22 History oral powder packet (Miralax) timolol maleate 0.5 % eye drops 1 drp ophthalmic (eye) QDAY 01/08/20 11/03/22 History Lactobacillus acidophilus 2,000 mmu cells PO BID #40 caps 01/12/20 11/03/22 Rx ciprofloxacin HCl 500 mg tablet 500 mg PO BID #10 tabs 01/12/20 11/03/22 Rx Allergies Allergy/AdvReac Type Severity Reaction Status Date / Time No Known Drug Allergies Allergy Verified 01/08/20 10:39 A/P Narrative A/P Narrative: A: *Right Hip fracture: *Generalized weakness/deconditioning: *Dementia: *Paroxysmal A-fib: supposed to be off anticoagulation due to falls, but pt may still be taking it *GERD *CKD III: *Anemia, chronic: P: -Dr Hamlin for orthopedic repair -Pain control -monitor afib on tele -monitor renal function and urine output. -cont home Dilt -Home medication reconciliation -PT/OT -CM for placement -ppx: SCD and postop per ortho / home H2 Time Spent With Patient Time: Total time spent is greater than 50% in coordination of care (as documented) at patient's floor/unit and/or counseling patient: Initial: Total time with patient: 55 - 74 minutes
[2022-11-03] MEDS: DOCUSATE SODIUM 100 MG CAPSULE PO SCH (22:47)
[2022-11-03] MEDS ORDERED: FAMOTIDINE 20 MG TABLET PO ONE (22:50)
[2022-11-03] MEDS: HYDROcodone/APAP 5/325MG TABLET PO PRN (22:53)
[2022-11-03] MEDS: FAMOTIDINE 20 MG TABLET PO SCH (22:53)
[2022-11-03] MEDS ORDERED: HYDROcodone/APAP 5/325MG TABLET PO ONE (22:54)
[2022-11-04] MEDS: morphine 4 MG/ML VIAL IV PRN ×3 (01:30→11:12)
[2022-11-04] MEDS ORDERED: morphine 4 MG/ML VIAL ONE ×2 (01:31→07:28)
[2022-11-04 06:12] LABS: Basophils # (Auto) 0.02 K/mcL (0.00-0.30); Basophils % (Auto) 0.2 % (0.0-2.0); Eosinophils # (Auto) 0.05 K/mcL (0.00-0.70); Eosinophils % (Auto) 0.4 % (0.0-7.0); Hematocrit 30.9 % (34.1-44.9); Hemoglobin 9.7 g/dL (11.2-15.7); Lymphocytes # (Auto) 1.36 K/mcL (1.50-4.80); Lymphocytes % (Auto) 11.7 % (15.5-49.0); Mean Cell Volume 91.7 fL (80.0-100.0); Mean Corpuscular HGB Conc 31.4 g/dL (31.0-36.0); Mean Platelet Volume 11.7 fL (8.8-12.5); Monocytes # (Auto) 0.79 K/mcL (0.10-0.90); Monocytes % (Auto) 6.8 % (1.0-12.0); Neutrophils % (Auto) 80.3 % (38.0-78.0); Platelet Count 226 K/mcL (140-440); RBC 3.37 M/mcL (3.59-5.38); Red Cell Distribution Width 13.1 % (11.5-14.5); WBC 11.6 K/mcL (4.5-11.0)
[2022-11-04 06:42] LABS: ALT/SGPT 12 U/L (<40); AST/SGOT 22 U/L (<32); Albumin 3.4 gm/dL (3.2-5.2); Albumin/Globulin Ratio 1.4 (1.0-2.3); Alkaline Phosphatase 69 U/L (39-117); Bilirubin,Direct 0.2 mg/dL (<0.3); Bilirubin,Total 0.8 mg/dL (0.1-1.0); Blood Urea Nitrogen 23 mg/dL (8-23); Calcium 8.7 mg/dL (8.6-10.4); Carbon Dioxide 26 mmol/L (22-30); Chloride 108 mmol/L (96-108); Globulin 2.5 gm/dL (2.2-3.7); Glomerular Filtration Rate 37; Glucose 120 mg/dL (70-105); Lactate Dehydrogenase 238 U/L (135-225); Phosphorous 4.2 mg/dL (2.5-4.5); Triglycerides 114 mg/dL (<150); Uric Acid 5.9 mg/dL (2.5-8.0)
[2022-11-04] MEDS: DOCUSATE SODIUM 100 MG CAPSULE PO SCH ×3 (07:42→21:19)
--- NOTE | 2022-11-04 08:49 | Consultation ---
DATE OF CONSULTATION: 11/04/2022 REASON FOR CONSULTATION: Right hip fracture. DATE OF CONSULTATION: 11/04/2022. HISTORY OF PRESENT ILLNESS: The patient is an 87-year-old female who has some dementia who resides by herself, who was found down by a family member yesterday evening. At that time, she complained of right hip pain, was taken to the outside hospital and found to have a hip fracture. Subsequently, transferred to [facility] for further evaluation and treatment. She has been admitted to the hospitalist. This morning, she complains of right hip pain. She just returned from CT scan of her head. Otherwise, she denies any acute changes. PAST MEDICAL HISTORY: Significant for history of pulmonary embolism, history of AFib, chronic kidney disease, hypertension, history of multiple falls with the prior femoral neck fracture on the left side. PAST SURGICAL HISTORY: She had a prior left femoral neck fracture operative fixation. ALLERGIES: NO KNOWN DRUG ALLERGIES. MEDICATIONS: Eliquis, diltiazem, iron, latanoprost, losartan, stool softeners. SOCIAL HISTORY: She resides independently at home. She does have family members close. She has been independent with activity at home. REVIEW OF SYSTEMS: Negative except as mentioned above with dementia. PHYSICAL EXAMINATION: GENERAL: The patient is not in acute distress. She does respond to questions somewhat appropriately at least regarding her hip. EXTREMITIES: Right lower extremity, she does have shortened external and internally rotated position of the hip itself. The foot is warm and well-perfused. Skin is intact. Of note, she does have an abrasion with a bandage on her left lower extremity. LABORATORY DATA: She has a CBC with white count that is down trending to 11.6, was 15 at an outside hospital yesterday. H and H 9.7 and 30.9, platelets 226. Her creatinine is 1.3, glucose 120. Albumin is 3.4. IMAGING: She has plain radiographs demonstrating a right intertrochanteric femur fracture that is displaced and appears to extend to lateral cortex as well. Questionable whether the lateral cortex of the greater trochanter did involve as well as it does appear to have a fracture. This is also evident on the lateral. ASSESSMENT AND PLAN: This is an 87-year-old female who has right intertrochanteric femur fracture. She has multiple medical comorbidities that places her at increased risk for postoperative complications to include prior DVT with AFib. I discussed this with her, which she seems to comprehend and does want her hip fixed. I will further discuss with her daughter once we are able to contact them, but would recommend operative fixation of that right hip fracture as she is independent with daily activities at home. That will be the plan for later on today. The other complicating factor is that unsure when she last took her Eliquis, but likely to be Saturday. She has had no prescriptions for this for 2 years according to her primary care, however, daughter reports she has a bottle of it home. Given that, we will treat as such. Earliest would be for operative fixation later on tonight around 4:00 to 5:00. Again, we will attempt to contact the daughter for clarification and discussion. DORCAS:[email or web address] Job ID: [id number] Doc ID: [id number] Jamey Hamlin MD MTDStephanie
[2022-11-04] MEDS ORDERED: FAMOTIDINE 20 MG TABLET PO SCH (09:00)
--- NOTE | 2022-11-04 09:13 | Cat Scan Report ---
INDICATION: Fall on Eliquis COMPARISON: None. TECHNIQUE: Axial noncontrast-enhanced images through the brain. Sagittally and coronally reformatted images. FINDINGS: Cerebral hemispheres:Negative. No intra-axial abnormality. No intra-axial hematoma. No localized mass effect.Brain volume is within normal limits for age. There is white matter abnormality consistent with small vessel ischemic change. No acute or focal abnormality. Brainstem and cerebellum:No intra-axial abnormality Extra-axial:No acute hemorrhage. No subdural or epidural hematoma. No subarachnoid hemorrhage. Basilar cisterns are normal Calvarial:No calvarial fracture. No lytic lesion Temporal bones are negative. No destructive lesions Soft tissue, orbits, sinuses:Orbits and visualized facial soft tissues and paranasal sinuses are negative IMPRESSION: Negative post trauma brain CT scan The exam was performed using radiation dose optimization techniques including, but not limited to, automated exposure control, adjustment of the mA and/or kV according to patient size and use of iterative reconstruction technique. Interpreted and Authenticated by: Emil Lott 11/04/22
[2022-11-04] MEDS: LACTOBACILLUS 1 CAPSULE PO SCH ×2 (09:32→21:19)
[2022-11-04] MEDS: HYDROcodone/APAP 5/325MG TABLET PO PRN (09:32)
[2022-11-04] MEDS: FAMOTIDINE 20 MG TABLET PO SCH ×2 (09:32→21:19)
[2022-11-04] MEDS: DILTIAZEM 180 MG CAP.XL.24H PO SCH (09:32)
[2022-11-04 12:19] LABS: Appearance,Urine CLOUDY (Clear); Bacteria,Urine MOD /hpf (0); Bilirubin,Urine Negative (Negative); Color,Urine AMBER; Culture Indicated,Urine yes; Glucose,Urine (UA) Negative (Negative); Ketones,Urine Negative (Negative); Leukocyte Esterase,Urine 250 /uL (Negative); Mucus,Urine MANY /hpf; Nitrate,Urine Negative (Negative); Protein,Urine Negative (Negative); Specific Gravity,Urine 1.027 (1.000-1.035); Urine Blood Negative (Negative); Urine Hyaline Cast 39 /lph (0-2); Urine RBC 7 /hpf (0-3); Urine Squamous Epithelial Cell 1 /hpf (0-4); Urine WBC 110 /hpf (0-4); Urobilinogen,Urine Negative
[2022-11-04] MEDS: TIMOLOL 0.5% OPHTH DROPS BOTTLE 5ML OU SCH (15:25)
[2022-11-04] MEDS: LATANOPROST OPHTH DROPS 2.5ML BOTTLE OU SCH (15:25)
[2022-11-04] MEDS: BRIMONIDINE OPHTH DROPS 1 GTT BOTTLE 5ML OU SCH ×2 (15:25→22:15)
[2022-11-04] MEDS ORDERED: SCOPOLAMINE 1 PATCH PATCH TOPICAL PRN (16:10)
[2022-11-04] MEDS: ceFAZolin 2 GM in DEXTROSE 5% IN WATER 50 ML IV SCH ×2 (17:00→17:27)
[2022-11-04] MEDS ORDERED: ceFAZolin 1 GM VIAL ONE (17:03)
[2022-11-04] MEDS ORDERED: diphenhydrAMINE 50 MG/ML VIAL IV PRN (17:24)
[2022-11-04] MEDS ORDERED: LACTATED RINGERS 250 ML IV PRN (17:24)
[2022-11-04] MEDS ORDERED: PROMETHAZINE 25 MG/ML VIAL IV PRN (17:24)
[2022-11-04] MEDS ORDERED: MEPERIDINE 25 MG/ML VIAL IV PRN (17:24)
[2022-11-04] MEDS ORDERED: NALOXONE HCL 0.4 MG/ML VIAL IV PRN (17:24)
[2022-11-04] MEDS ORDERED: fentaNYL 100 MCG/2 ML VIAL IV PRN (17:24)
[2022-11-04] MEDS ORDERED: ONDANSETRON 4 MG/2 ML VIAL IV PRN (17:24)
[2022-11-04] MEDS ORDERED: IPRATROPIUM/ALBUTEROL 3 ML AMPUL.NEB NEB PRN (17:24)
[2022-11-04] MEDS ORDERED: ACETAMINOPHEN 1,000 MG/100 ML BAG IV ONE ×2 (17:24→18:17)
[2022-11-04] MEDS ORDERED: VANCOMYCIN 1 GM VIAL TOPICAL SCH (17:30)
[2022-11-04] MEDS ORDERED: LACTATED RINGERS 1,000 ML IV SCH (17:30)
[2022-11-04] MEDS ORDERED: oxyCODONE IR 5 MG TABLET PO PRN (18:12)
[2022-11-04] MEDS ORDERED: BENZOCAINE/MENTHOL 1 LOZENGE PO PRN (18:12)
[2022-11-04] MEDS ORDERED: METHOCARBAMOL 500 MG TABLET PO PRN (18:12)
--- NOTE | 2022-11-04 18:12 | Brief Operative Note ---
Brief Operative Note Date of procedure: 11/04/22 Pre-op diagnosis: right intertrochanteric hip fracture Post-op diagnosis: same Procedure: open reduction internal fixation right intertrochanteric hip fracture Grafts/Implants: Yes Anesthesia: GETA Findings: displaced fracture Complications: none Surgeon: Jamey Hamlin [employer] Insurance Agent: Lopez Edward Estimated blood loss (cc): 100 Tourniquet Time (Minutes): 0 Specimens Removed/Pathology: none sent Condition: stable Disposition: PACU
[2022-11-04] MEDS ORDERED: ceFAZolin 2 GM in DEXTROSE 5% IN WATER 50 ML IV SCH (18:15)
--- NOTE | 2022-11-04 18:26 | XRay Report ---
INDICATION: hip fracture surgical procedure TECHNIQUE: Intraoperative fluoroscopy and spot films. 1.9 minutes fluoroscopy and 15.6 mGy exposure utilized by Dr. Hamlin. Open reduction and internal fixation of an intratrochanteric hip fracture performed with gamma nail configuration IMPRESSION: Intraoperative fluoroscopy and spot films Interpreted and Authenticated by: Emil Lott 11/04/22
[2022-11-04] MEDS ORDERED: CIPROFLOXACIN 400 MG/200 ML BAG IV ONE (18:29)
[2022-11-04] MEDS: ACETAMINOPHEN 500 MG TABLET PO SCH (21:20)
[2022-11-04] MEDS: LACTATED RINGERS 1,000 ML IV SCH (22:40)
[2022-11-05] MEDS ORDERED: ceFAZolin 1 GM VIAL IV SCH (01:00)
--- NOTE | 2022-11-05 05:08 | XRay Report ---
INDICATION: S/P ORIF PROXIMAL FEMUR FRACTURE TECHNIQUE: AP pelvis. AP and crosstable lateral left femur COMPARISON: Preoperative evaluation dated 11/03/2022 FINDINGS: Status post open reduction and internal fixation of right intertrochanteric hip fracture. There is an intramedullary nail extending the length of the right femur. Distal femur is not well visualized on crosstable lateral view. Gamma nail configuration for treatment of intratrochanteric fracture. The lesser trochanter is fractured and displaced. Pelvis is negative. No fracture. No lytic lesion. IMPRESSION: 1. Open reduction and internal fixation of right intratrochanteric hip fracture with gamma nail 2. Intramedullary nail extending the length of the right femur Interpreted and Authenticated by: Emil Lott 11/05/22
--- NOTE | 2022-11-05 05:50 | Orthopedic Progress Note ---
SUBJECTIVE Subjective Patient information: Note initiated : 11/05/22 at 5:47 am Service Date, if different from initiated Date: [] Patient: Nu Coto 87 y/o F admitted on 11/03/22 for Hip Fx. Chief Complaint: [No acute issues overnight.] Constitutional Vitals: Vital Signs Temp Pulse Resp BP Pulse Ox O2 Del Method O2 Flow Rate 97.8 F 68 16 112/45 98 Nasal Cannula 2 11/05/22 03:39 11/05/22 03:39 11/05/22 03:39 11/05/22 03:39 11/05/22 03:39 11/05/22 03:39 11/05/22 03:39 Period Temp Pulse Resp BP Sys/Muir Pulse Ox O2 Del Method O2 Flow Rate Last 24 Hr 97.0 F-98.2 F 61-87 04-25 110-160/41-96 88-100 Nasal Cannula- Room Air 0-3 Intake and Output 11/04/22 11/05/22 11/05/22 19:59 03:59 11:59 Intake Total 1000 200 Output Total 310 300 Balance 690 -100 Weight 138 lb 12.8 oz Intake & Output: Intake & Output 11/04/22 11/05/22 11/05/22 19:59 03:59 11:59 Intake Total 1000 200 Output Total 310 300 Balance 690 -100 Weight 138 lb 12.8 oz Intake: IV 100 200 IV - Manual Only 900 Output: Urine Catheter Amount 210 300 Estimated Blood Loss 100 Other: Urine Appearance Cloudy Urine Color Dark Yellow Dark Yellow Urine Odor Strong Strong Additional findings Additional findings: awake, non acute distress, bit repetitive speach/story. Right hip: dressing clean dry and intact. foot warm well perfused OBJ DATA Labs 11/04/22 05:06 11/04/22 05:06 Labs: Abnormal Lab Results 11/04/22 11/04/22 11/04/22 08:23 05:06 05:06 WBC 11.6 H RBC 3.37 L Hgb 9.7 L Hct 30.9 L Immature Gran % (Auto) 0.6 H Neut % (Auto) 80.3 H Lymph % (Auto) 11.7 L Lymph # (Auto) 1.36 L Immature Gran # 0.07 H Absolute Neutrophils 9.33 H Creatinine 1.3 H Glucose 120 H Lactate Dehydrogenase 238 H Urine Appearance Cloudy A Ur Leukocyte Esterase 250 A Urine RBC 7 H Urine WBC 110 H Urine Bacteria Mod A Hyaline Casts 39 H Urine Mucus Many A Meds: Medications Acetaminophen (Acetaminophen 500 Mg Tablet) 1,000 mg PO Q8 [facility]; Protocol Last Admin: 11/04/22 21:20 Dose: Not Given Hydrocodone Bitart/Acetaminophen (Hydrocodone/Apap 5/325mg Tablet) 1 tab PO Q4HP PRN PRN Reason: PAIN LEVEL 3-6 Last Admin: 11/04/22 09:32 Dose: 1 tab Albuterol/Ipratropium (Ipratropium/Albuterol 3 Ml Ampul.Neb) 3 ml NEB Q4HP PRN PRN Reason: Shortness Of Breath Apixaban (Apixaban 5 Mg Tablet) 2.5 mg PO BID [facility] Brimonidine Tartrate (Brimonidine Ophth Drops 1 Gtt Bottle 5ml) 1 gtt OU BID [facility] Last Admin: 11/04/22 22:15 Dose: Not Given Cefazolin Sodium (Cefazolin 1 Gm Vial) 2 gm IV Q8H [facility] Stop: 11/05/22 09:01 Last Admin: 11/05/22 00:10 Dose: 2 gm Ceftriaxone Sodium (Ceftriaxone 1 Gm Vial) 1 gm IV Q24H [facility]; Protocol Diltiazem HCl (Diltiazem 180 Mg Cap.Xl.24h) 180 mg PO DAILY [facility] Last Admin: 11/04/22 09:32 Dose: 180 mg Docusate Sodium (Docusate Sodium 100 Mg Capsule) 100 mg PO BID [facility] Last Admin: 11/04/22 21:19 Dose: Not Given Famotidine (Famotidine 20 Mg Tablet) 20 mg PO BID [facility] Last Admin: 11/04/22 21:19 Dose: Not Given Potassium Chloride 40 meq/ (Dextrose) 520 mls @ 130 mls/hr IV UD PRN PRN Reason: Potassium Level < 3 Magnesium Sulfate (Magnesium Sulfate) 2 gm in 50 mls @ 25 mls/hr IV UD PRN PRN Reason: Magnesium Level </= 1.6 Lactated Ringer's (Lactated Ringers) 1,000 mls @ 75 mls/hr IV .[id number] [facility] Last Admin: 11/04/22 22:40 Dose: 75 mls/hr Lactobacillus Rhamnosus (Lactobacillus 1 Capsule) 1 cap PO BID [facility] Last Admin: 11/04/22 21:19 Dose: Not Given Latanoprost (Latanoprost Ophth Drops 2.5ml Bottle) 1 gtt OU QDAY [facility] Last Admin: 11/04/22 15:25 Dose: Not Given Losartan Potassium (Losartan 50 Mg Tablet) 100 mg PO BID [facility] Methocarbamol (Methocarbamol 500 Mg Tablet) 500 mg PO TIDP PRN PRN Reason: Muscle Spasm Metoprolol Tartrate (Metoprolol Tartrate 5 Mg/5 Ml Vial) 5 mg IV Q2HP PRN PRN Reason: Tachyarrhythmias HR>110 Morphine Sulfate (Morphine 4 Mg/Ml Vial) 0 mg IV Q3HP PRN PRN Reason: Pain Last Admin: 11/04/22 11:12 Dose: 3 mg Ondansetron HCl (Ondansetron 4 Mg/2 Ml Vial) 4 mg IV Q4HP PRN PRN Reason: Nausea And Vomiting Last Admin: 11/04/22 12:51 Dose: 4 mg Oxycodone HCl (Oxycodone Ir 5 Mg Tablet) 0 mg PO Q4HP PRN; Protocol PRN Reason: Per Pain Protocol Polyethylene Glycol (Polyethylene Glycol 3350 17 Gm Packet) 17 gm PO DAILYP PRN PRN Reason: Constipation Potassium Chloride (Potassium Chloride 20 Meq Tablet) 40 meq PO UD PRN PRN Reason: Potassium Level of 3-3.5 Potassium Chloride (Potassium Chloride 20 Meq Tablet) 40 meq PO UD PRN PRN Reason: Potassium Level < 3 Senna (Sennosides 1 Tablet) 2 tab PO DAILYP PRN PRN Reason: Constipation Throat Lozenges (Benzocaine/Menthol 1 Lozenge) 1 lozenge PO PRN PRN PRN Reason: Sore Throat Timolol Maleate (Timolol 0.5% Ophth Drops Bottle 5ml) 1 gtt OU QDAY [facility] Last Admin: 11/04/22 15:25 Dose: Not Given A/P Assessment and plan (1) Intertrochanteric fracture of femur: Assessment and plan: POD 1 s/p orif right intertroch fracture with long gamma nail --50% weight bearing x3-4 weeks then progressive to full. ---pt/ot --oral pain meds --prophy: foot pumps, IS, start eliquis today, mobilization --dispo: lives alone, will need SNF. ok to d/c once dispo set up Status: Acute Time Spent With Patient Time: Total time spent is greater than 50% in coordination of care (as documented) at patient's floor/unit and/or counseling patient:
[2022-11-05 06:31] LABS: Basophils # (Auto) 0.01 K/mcL (0.00-0.30); Basophils % (Auto) 0.1 % (0.0-2.0); Eosinophils # (Auto) 0 K/mcL (0.00-0.70); Eosinophils % (Auto) 0 % (0.0-7.0); Hemoglobin 8.6 g/dL (11.2-15.7); Lymphocytes # (Auto) 0.63 K/mcL (1.50-4.80); Lymphocytes % (Auto) 6.1 % (15.5-49.0); Mean Cell Volume 95.9 fL (80.0-100.0); Mean Corpuscular HGB Conc 30.7 g/dL (31.0-36.0); Mean Platelet Volume 11.6 fL (8.8-12.5); Monocytes # (Auto) 0.33 K/mcL (0.10-0.90); Monocytes % (Auto) 3.2 % (1.0-12.0); Neutrophils % (Auto) 90.1 % (38.0-78.0); Platelet Count 188 K/mcL (140-440); RBC 2.92 M/mcL (3.59-5.38); Red Cell Distribution Width 12.7 % (11.5-14.5); WBC 10.4 K/mcL (4.5-11.0)
[2022-11-05 07:02] LABS: Blood Urea Nitrogen 28 mg/dL (8-23); Calcium 8.9 mg/dL (8.6-10.4); Carbon Dioxide 26 mmol/L (22-30); Chloride 104 mmol/L (96-108); Glomerular Filtration Rate 45; Glucose 160 mg/dL (70-105)
--- NOTE | 2022-11-05 07:27 | EKG ---
[facility] Test Date: 2022-11-04 Pat Name: Nu Coto Department: [facility] Room: 128 Gender: Female [employer]: : 1935 Requested By: Jose Marshall Order Number: [id number] Reading MD: Emil Downs M.D. Measurements Intervals [place] Rate: 69 P: 79 CO: 136 QRS: -20 QRSD: 138 T: 19 QT: 431 QTc: 463 Interpretive Statements Sinus rhythm Right bundle branch block Electronically Signed On 11-05-2022 7:27:05 PDT by Emil Downs M.D. /[email or web address]/[email or web address]/[id number]
--- NOTE | 2022-11-05 07:39 | Internal Med Progress Note ---
SUBJECTIVE Subjective Patient information: Note initiated : 11/05/22 at 7:37 am Service Date, if different from initiated Date: [] Patient: Nu Coto 87 y/o F admitted on 11/03/22 for Hip Fx. Chief Complaint: [] Constitutional Vitals: Vital Signs Temp Pulse Resp BP Pulse Ox O2 Del Method O2 Flow Rate 97.8 F 68 16 112/45 98 Nasal Cannula 2 11/05/22 03:39 11/05/22 03:39 11/05/22 03:39 11/05/22 03:39 11/05/22 03:40 11/05/22 03:40 11/05/22 03:40 Period Temp Pulse Resp BP Sys/Muir Pulse Ox O2 Del Method O2 Flow Rate Last 24 Hr 97.0 F-98.2 F 61-87 11 110-160/41-96 88-100 Nasal Cannula- Room Air 0-3 Intake and Output 11/04/22 11/05/22 11/05/22 19:59 03:59 11:59 Intake Total 1000 200 Output Total 310 300 Balance 690 -100 Weight 62.959 kg Intake & Output: Intake & Output 11/04/22 11/05/22 11/05/22 19:59 03:59 11:59 Intake Total 1000 200 Output Total 310 300 Balance 690 -100 Weight 62.959 kg Intake: IV 100 200 IV - Manual Only 900 Output: Urine Catheter Amount 210 300 Estimated Blood Loss 100 Other: Urine Appearance Cloudy Urine Color Dark Yellow Dark Yellow Urine Odor Strong Strong OBJ DATA Labs 11/05/22 05:31 11/05/22 05:31 Labs: Abnormal Lab Results 11/05/22 11/05/22 11/04/22 05:31 05:31 08:23 WBC RBC 2.92 L Hgb 8.6 L Hct 28.0 L MCHC 30.7 L Immature Gran % (Auto) Neut % (Auto) 90.1 H Lymph % (Auto) 6.1 L Lymph # (Auto) 0.63 L Immature Gran # Absolute Neutrophils 9.36 H BUN 28 H Creatinine Glucose 160 H Lactate Dehydrogenase Urine Appearance Cloudy A Ur Leukocyte Esterase 250 A Urine RBC 7 H Urine WBC 110 H Urine Bacteria Mod A Hyaline Casts 39 H Urine Mucus Many A 11/04/22 11/04/22 05:06 05:06 WBC 11.6 H RBC 3.37 L Hgb 9.7 L Hct 30.9 L MCHC Immature Gran % (Auto) 0.6 H Neut % (Auto) 80.3 H Lymph % (Auto) 11.7 L Lymph # (Auto) 1.36 L Immature Gran # 0.07 H Absolute Neutrophils 9.33 H BUN Creatinine 1.3 H Glucose 120 H Lactate Dehydrogenase 238 H Urine Appearance Ur Leukocyte Esterase Urine RBC Urine WBC Urine Bacteria Hyaline Casts Urine Mucus Meds: Medications Acetaminophen (Acetaminophen 500 Mg Tablet) 1,000 mg PO Q8 [facility]; Protocol Last Admin: 11/04/22 21:20 Dose: Not Given Hydrocodone Bitart/Acetaminophen (Hydrocodone/Apap 5/325mg Tablet) 1 tab PO Q4HP PRN PRN Reason: PAIN LEVEL 3-6 Last Admin: 11/04/22 09:32 Dose: 1 tab Albuterol/Ipratropium (Ipratropium/Albuterol 3 Ml Ampul.Neb) 3 ml NEB Q4HP PRN PRN Reason: Shortness Of Breath Apixaban (Apixaban 5 Mg Tablet) 2.5 mg PO BID [facility] Brimonidine Tartrate (Brimonidine Ophth Drops 1 Gtt Bottle 5ml) 1 gtt OU BID [facility] Last Admin: 11/04/22 22:15 Dose: Not Given Cefazolin Sodium (Cefazolin 1 Gm Vial) 2 gm IV Q8H [facility] Stop: 11/05/22 09:01 Last Admin: 11/05/22 00:10 Dose: 2 gm Ceftriaxone Sodium (Ceftriaxone 1 Gm Vial) 1 gm IV Q24H [facility]; Protocol Diltiazem HCl (Diltiazem 180 Mg Cap.Xl.24h) 180 mg PO DAILY [facility] Last Admin: 11/04/22 09:32 Dose: 180 mg Docusate Sodium (Docusate Sodium 100 Mg Capsule) 100 mg PO BID [facility] Last Admin: 11/04/22 21:19 Dose: Not Given Famotidine (Famotidine 20 Mg Tablet) 20 mg PO BID [facility] Last Admin: 11/04/22 21:19 Dose: Not Given Potassium Chloride 40 meq/ (Dextrose) 520 mls @ 130 mls/hr IV UD PRN PRN Reason: Potassium Level < 3 Magnesium Sulfate (Magnesium Sulfate) 2 gm in 50 mls @ 25 mls/hr IV UD PRN PRN Reason: Magnesium Level </= 1.6 Lactated Ringer's (Lactated Ringers) 1,000 mls @ 75 mls/hr IV .[id number] [facility] Last Admin: 11/04/22 22:40 Dose: 75 mls/hr Lactobacillus Rhamnosus (Lactobacillus 1 Capsule) 1 cap PO BID [facility] Last Admin: 11/04/22 21:19 Dose: Not Given Latanoprost (Latanoprost Ophth Drops 2.5ml Bottle) 1 gtt OU QDAY [facility] Last Admin: 11/04/22 15:25 Dose: Not Given Losartan Potassium (Losartan 50 Mg Tablet) 100 mg PO BID [facility] Methocarbamol (Methocarbamol 500 Mg Tablet) 500 mg PO TIDP PRN PRN Reason: Muscle Spasm Metoprolol Tartrate (Metoprolol Tartrate 5 Mg/5 Ml Vial) 5 mg IV Q2HP PRN PRN Reason: Tachyarrhythmias HR>110 Morphine Sulfate (Morphine 4 Mg/Ml Vial) 0 mg IV Q3HP PRN PRN Reason: Pain Last Admin: 11/04/22 11:12 Dose: 3 mg Ondansetron HCl (Ondansetron 4 Mg/2 Ml Vial) 4 mg IV Q4HP PRN PRN Reason: Nausea And Vomiting Last Admin: 11/04/22 12:51 Dose: 4 mg Oxycodone HCl (Oxycodone Ir 5 Mg Tablet) 0 mg PO Q4HP PRN; Protocol PRN Reason: Per Pain Protocol Polyethylene Glycol (Polyethylene Glycol 3350 17 Gm Packet) 17 gm PO DAILYP PRN PRN Reason: Constipation Potassium Chloride (Potassium Chloride 20 Meq Tablet) 40 meq PO UD PRN PRN Reason: Potassium Level of 3-3.5 Potassium Chloride (Potassium Chloride 20 Meq Tablet) 40 meq PO UD PRN PRN Reason: Potassium Level < 3 Senna (Sennosides 1 Tablet) 2 tab PO DAILYP PRN PRN Reason: Constipation Throat Lozenges (Benzocaine/Menthol 1 Lozenge) 1 lozenge PO PRN PRN PRN Reason: Sore Throat Timolol Maleate (Timolol 0.5% Ophth Drops Bottle 5ml) 1 gtt OU QDAY [facility] Last Admin: 11/04/22 15:25 Dose: Not Given A/P Narrative A/P Narrative: A: *Right Hip fracture: s/p ORIF (11/04) *Generalized weakness/deconditioning: *UTI: *Dementia: *Paroxysmal A-fib: supposed to be off anticoagulation due to falls, but pt may still be taking it *GERD *CKD III: *Anemia, chronic: P: -Dr Hamlin for orthopedic repair -Pain control -monitor afib on tele -monitor renal function and urine output. -cont home Dilt/ARB -rocephin pending UC -PT/OT -CM for placement -ppx: SCD and postop per ortho eliquis 2.5mg / home H2 Time Spent With Patient Time: Total time spent is greater than 50% in coordination of care (as documented) at patient's floor/unit and/or counseling patient: Subsequent: Total time with patient: 35 - 49 minutes QUALITY VTE Deep Vein Thrombosis/Pulmonary Embolism Present on Admission: No
[2022-11-05] MEDS: ACETAMINOPHEN 500 MG TABLET PO SCH ×3 (08:02→21:53)
--- NOTE | 2022-11-05 08:39 | Internal Med Progress Note ---
SUBJECTIVE Subjective Patient information: Note initiated : 11/05/22 at 8:38 am Service Date, if different from initiated Date: [] Patient: Nu Coto a 87 y/o F admitted on 11/03/22 for Hip Fx. Chief Complaint: [] Interval history: History of present illness: Ms. Coto is a 87 year old F Presents to [place] after a fall. Fall occurred yesterday afternoon she was at home tripped and fell onto her right hip. Patient says she was getting up to go the bathroom was in a hurry and lost her balance and fell. Was then not able to get off the floor remained on the floor overnight until a family member stop by and found her on the floor and called EMS. Work-up in ED revealed rightside hip fracture. Dr. Hamlin was contacted. She was supposed to be off of her Eliquis per PCP because of falls but sounds like she may have been taking it. Sounds like sure dementia has been getting worse and she has had to rely on a friend help take care of her activities of daily living. 11/05 Patient tolerated surgery well. No overnight event or new complaints. Patient sitting in bed eating breakfast. Found to have a UTI on admission evaluation. Review of Systems: Pertinent positives as above. Denies headache/fever/chills/nausea/vomiting/chest or abdominal pain/cough/dyspnea/diarrhea. Remaining 10 point review of system reviewed negative PHYSICAL EXAM General: Alert, Awake, No acute Distress Eyes/N/T: EOMI, no scleral icterus, Head/Neck: neck supple, full ROM, CV: Regular RR, No murmurs, Pulm: Clear b/l, no wheezing/rhonchi/rales, no respiratory distress Abd: soft, nontender, +BS x4 Ext: no clubbing/cyanosis/edema, nontender Neuro: Alert, CN 2-12 grossly intact, no focal deficits, moves all extremities, , sensations intact b/l upper/lower Psychiatric: Pleasantly demented Skin: warm/dry, normal color Constitutional Vitals: Vital Signs Temp Pulse Resp BP Pulse Ox O2 Del Method O2 Flow Rate 97.8 F 92 H 16 165/74 97 Room Air 2 11/05/22 08:00 11/05/22 08:00 11/05/22 08:00 11/05/22 08:00 11/05/22 08:00 11/05/22 08:00 11/05/22 03:40 Period Temp Pulse Resp BP Sys/Muir Pulse Ox O2 Del Method O2 Flow Rate Last 24 Hr 97.0 F-98.0 F 61-92 11-23 111-165/41-96 88-100 Nasal Cannula- Room Air 0-3 Intake and Output 11/04/22 11/05/22 11/05/22 19:59 03:59 11:59 Intake Total 1000 200 Output Total 310 300 Balance 690 -100 Weight 62.959 kg Intake & Output: Intake & Output 11/04/22 11/05/22 11/05/22 19:59 03:59 11:59 Intake Total 1000 200 Output Total 310 300 Balance 690 -100 Weight 62.959 kg Intake: IV 100 200 IV - Manual Only 900 Output: Urine Catheter Amount 210 300 Estimated Blood Loss 100 Other: Urine Appearance Cloudy Urine Color Dark Yellow Dark Yellow Urine Odor Strong Strong OBJ DATA Labs 11/05/22 05:31 11/05/22 05:31 Labs: Abnormal Lab Results 11/05/22 11/05/22 11/04/22 05:31 05:31 08:23 WBC RBC 2.92 L Hgb 8.6 L Hct 28.0 L MCHC 30.7 L Immature Gran % (Auto) Neut % (Auto) 90.1 H Lymph % (Auto) 6.1 L Lymph # (Auto) 0.63 L Immature Gran # Absolute Neutrophils 9.36 H BUN 28 H Creatinine Glucose 160 H Lactate Dehydrogenase Urine Appearance Cloudy A Ur Leukocyte Esterase 250 A Urine RBC 7 H Urine WBC 110 H Urine Bacteria Mod A Hyaline Casts 39 H Urine Mucus Many A 11/04/22 11/04/22 05:06 05:06 WBC 11.6 H RBC 3.37 L Hgb 9.7 L Hct 30.9 L MCHC Immature Gran % (Auto) 0.6 H Neut % (Auto) 80.3 H Lymph % (Auto) 11.7 L Lymph # (Auto) 1.36 L Immature Gran # 0.07 H Absolute Neutrophils 9.33 H BUN Creatinine 1.3 H Glucose 120 H Lactate Dehydrogenase 238 H Urine Appearance Ur Leukocyte Esterase Urine RBC Urine WBC Urine Bacteria Hyaline Casts Urine Mucus Meds: Medications Acetaminophen (Acetaminophen 500 Mg Tablet) 1,000 mg PO Q8 [facility]; Protocol Last Admin: 11/05/22 08:02 Dose: 1,000 mg Hydrocodone Bitart/Acetaminophen (Hydrocodone/Apap 5/325mg Tablet) 1 tab PO Q4HP PRN PRN Reason: PAIN LEVEL 3-6 Last Admin: 11/04/22 09:32 Dose: 1 tab Albuterol/Ipratropium (Ipratropium/Albuterol 3 Ml Ampul.Neb) 3 ml NEB Q4HP PRN PRN Reason: Shortness Of Breath Apixaban (Apixaban 5 Mg Tablet) 2.5 mg PO BID [facility] Brimonidine Tartrate (Brimonidine Ophth Drops 1 Gtt Bottle 5ml) 1 gtt OU BID [facility] Last Admin: 11/04/22 22:15 Dose: Not Given Ceftriaxone Sodium (Ceftriaxone 1 Gm Vial) 1 gm IV Q24H [facility]; Protocol Diltiazem HCl (Diltiazem 180 Mg Cap.Xl.24h) 180 mg PO DAILY [facility] Last Admin: 11/04/22 09:32 Dose: 180 mg Docusate Sodium (Docusate Sodium 100 Mg Capsule) 100 mg PO BID [facility] Last Admin: 11/04/22 21:19 Dose: Not Given Famotidine (Famotidine 20 Mg Tablet) 20 mg PO BID [facility] Last Admin: 11/04/22 21:19 Dose: Not Given Potassium Chloride 40 meq/ (Dextrose) 520 mls @ 130 mls/hr IV UD PRN PRN Reason: Potassium Level < 3 Magnesium Sulfate (Magnesium Sulfate) 2 gm in 50 mls @ 25 mls/hr IV UD PRN PRN Reason: Magnesium Level </= 1.6 Lactated Ringer's (Lactated Ringers) 1,000 mls @ 75 mls/hr IV .[id number] [facility] Last Admin: 11/04/22 22:40 Dose: 75 mls/hr Lactobacillus Rhamnosus (Lactobacillus 1 Capsule) 1 cap PO BID [facility] Last Admin: 11/04/22 21:19 Dose: Not Given Latanoprost (Latanoprost Ophth Drops 2.5ml Bottle) 1 gtt OU QDAY [facility] Last Admin: 11/04/22 15:25 Dose: Not Given Losartan Potassium (Losartan 50 Mg Tablet) 100 mg PO DAILY [facility] Methocarbamol (Methocarbamol 500 Mg Tablet) 500 mg PO TIDP PRN PRN Reason: Muscle Spasm Metoprolol Tartrate (Metoprolol Tartrate 5 Mg/5 Ml Vial) 5 mg IV Q2HP PRN PRN Reason: Tachyarrhythmias HR>110 Morphine Sulfate (Morphine 4 Mg/Ml Vial) 0 mg IV Q3HP PRN PRN Reason: Pain Last Admin: 11/04/22 11:12 Dose: 3 mg Ondansetron HCl (Ondansetron 4 Mg/2 Ml Vial) 4 mg IV Q4HP PRN PRN Reason: Nausea And Vomiting Last Admin: 11/04/22 12:51 Dose: 4 mg Oxycodone HCl (Oxycodone Ir 5 Mg Tablet) 0 mg PO Q4HP PRN; Protocol PRN Reason: Per Pain Protocol Polyethylene Glycol (Polyethylene Glycol 3350 17 Gm Packet) 17 gm PO DAILYP PRN PRN Reason: Constipation Potassium Chloride (Potassium Chloride 20 Meq Tablet) 40 meq PO UD PRN PRN Reason: Potassium Level of 3-3.5 Potassium Chloride (Potassium Chloride 20 Meq Tablet) 40 meq PO UD PRN PRN Reason: Potassium Level < 3 Senna (Sennosides 1 Tablet) 2 tab PO DAILYP PRN PRN Reason: Constipation Throat Lozenges (Benzocaine/Menthol 1 Lozenge) 1 lozenge PO PRN PRN PRN Reason: Sore Throat Timolol Maleate (Timolol 0.5% Ophth Drops Bottle 5ml) 1 gtt OU QDAY [facility] Last Admin: 11/04/22 15:25 Dose: Not Given A/P Narrative A/P Narrative: A: *Right Hip fracture: s/p ORIF (11/04) *Generalized weakness/deconditioning: *UTI: *Dementia: *Paroxysmal A-fib: supposed to be off anticoagulation due to falls, but pt may still be taking it *GERD *CKD III: *Anemia, chronic: P: -Dr Hamlin for orthopedic repair -Pain control -monitor afib on tele -monitor renal function and urine output. -cont home Dilt/ARB -rocephin pending UC -PT/OT -CM for placement -ppx: SCD and postop per ortho eliquis 2.5mg / home H2 Time Spent With Patient Time: Total time spent is greater than 50% in coordination of care (as documented) at patient's floor/unit and/or counseling patient: Subsequent: Total time with patient: 35 - 49 minutes QUALITY VTE Deep Vein Thrombosis/Pulmonary Embolism Present on Admission: No
[2022-11-05] MEDS ORDERED: LOSARTAN 50 MG TABLET PO SCH ×2 (09:00→09:01)
--- NOTE | 2022-11-05 09:05 | Operative Note ---
DATE OF OPERATION: 11/04/2022 DATE OF PROCEDURE: 11/04/2022 PREOPERATIVE DIAGNOSIS: Right intertrochanteric hip fracture. POSTOPERATIVE DIAGNOSIS: Right intertrochanteric hip fracture. PROCEDURE PERFORMED: Open reduction and internal fixation of right intertrochanteric femur fracture with cephalomedullary nail. SURGEON: Jamey Hamlin M.D. RANGER AIDE: Lopez Edward PA-C. This providers expertise and technical skill were required throughout the case. The HARRIS assisted with preoperative coordination, intraoperative retraction, wound closure, and dressing and splint application, as well as postoperative documentation and care coordination. ANESTHESIA: General. INTRAVENOUS FLUIDS: 900 mL. ESTIMATED BLOOD LOSS: 100 mL. TOURNIQUET TIME: Not applicable. ANTIBIOTICS: 2 grams Ancef. IMPLANTS: A Ida gamma nail long 10 x 400 with a 100 mm lag screw and two additional ones. INTRAOPERATIVE COMPLICATIONS: None apparent. PATHOLOGY/LAB: None. INDICATIONS FOR PROCEDURE: The patient is an 87-year-old female who had a ground-level fall resulting in a displaced right intertrochanteric femur fracture. I discussed this with her as well as her family. I discussed the operative treatment is my recommendation given that this will improve overall mobility and pain control. I discussed what the risk would be with surgery as well as expectations postoperatively. She understands, given her left side was done several years previously. She elected to proceed. DESCRIPTION OF PROCEDURE: Patient was met in the preoperative holding area where site was verified and marked with the patient's input. She was taken to the operating room where he underwent successful general anesthesia. She was placed on the Echo table with padded perineal and boots in place. With inline traction and slight rotation, we did reduce the fracture under fluoroscopy. The right hip was then prepped and draped in the usual sterile fashion with ChloraPrep. Surgical timeout was performed to verify patient's identity, correct procedure being performed and correct extremity being operated on. Everybody was in agreement. We isolated the tip of the greater trochanter with palpation then made a stab incision 2 fingerbreadths proximal to this. We placed a guidewire at the tip of the greater trochanter on the AP and center on the lateral position. The incision was then enlarged down to the tip of the greater trochanter and was placed intramedullary and verified both on AP and lateral. This guidewire was then reamed with an opening reamer. I did ream with a 10 and 11.5 reamer with minimal chatter throughout the canal. I failed to mention I did place a guidewire to the tip of the femur, verified both on AP and lateral to be an intramedullary technique. This was then measured, which was about 425, but this was the full length and I wanted to ensure it would not be proud proximally. Thus 400 was selected. Also, selected a 10 mm diameter nail was the next size up was 13 and we had a bit of chatter already. Once this was reamed and we placed the nail atraumatic in fashion, I placed the nail in order for the lag screw being in the middle to the inferior half of the femoral neck. Through the aiming arm guide, I made a small stab incision for our cannulated system over the lateral cortex of the femur to place our guidewire in the femoral head. The guidewire was then placed on AP and lateral views center-center position. I did elect to place a bone hook over the medial calcar as it was a basicervical component to this and this did reduce it very well with a bone hook. With that reduced, the guidewire had been placed. We overdrilled 100 mm after measuring. Prior to placing our screw and put anti-rotational wire in place as well. Screw position was verified on AP and lateral. I did compress through this once the screw had been placed and we removed our gross traction. This did allow for the femoral neck to reduce a bit. Our guidewires were removed. Our set screw was placed and backed off 1/4 turn. I did want this to slide a bit as there was still some compression of the fracture. Verified again on AP and lateral positioning as well as fracture reduction, I felt this was acceptable. The aiming arm was removed. Two distal interlocks were placed via [place] perfect [place] technique. The wound was copiously irrigated. I placed vancomycin powder deep in the wound. The fascia was closed over the proximal aspect with 0 Vicryl, subcutaneous tissue with 3-0 and 2-0 Vicryl. The skin was closed with jesse. Proximally, the hip was cleaned and dried. We placed a silver dressing distally. This was cleaned and dried. We placed Xeroform x 4 and Medipore tape. The patient awoke from anesthesia and was transferred to PACU in stable condition. POSTOPERATIVE PLAN: The patient will be admitted back to the floor for postoperative recovery. She can be progressive weightbearing with a walker for the first 4-6 weeks and weightbearing as tolerated thereafter. DLW:kj Job ID: [id number] Doc ID: [id number] Jamey Hamlin MD MTDD
[2022-11-05] MEDS: APIXABAN 5 MG TABLET PO SCH ×2 (10:02→21:53)
[2022-11-05] MEDS: cefTRIAXone 1 GM VIAL IV SCH (10:02)
[2022-11-05] MEDS: DILTIAZEM 180 MG CAP.XL.24H PO SCH (10:03)
[2022-11-05] MEDS: FAMOTIDINE 20 MG TABLET PO SCH ×2 (10:03→21:53)
[2022-11-05] MEDS: DOCUSATE SODIUM 100 MG CAPSULE PO SCH ×2 (10:03→21:52)
[2022-11-05] MEDS: LOSARTAN 50 MG TABLET PO SCH (10:03)
[2022-11-05] MEDS: LACTOBACILLUS 1 CAPSULE PO SCH ×2 (10:03→21:53)
[2022-11-05] MEDS: LACTATED RINGERS 1,000 ML IV SCH (10:04)
[2022-11-05] MEDS: BRIMONIDINE OPHTH DROPS 1 GTT BOTTLE 5ML OU SCH ×2 (10:15→21:56)
[2022-11-05] MEDS: TIMOLOL 0.5% OPHTH DROPS BOTTLE 5ML OU SCH (10:15)
[2022-11-05] MEDS: LATANOPROST OPHTH DROPS 2.5ML BOTTLE OU SCH (10:15)
--- NOTE | 2022-11-05 15:29 | Discharge Summary ---
Discharge Provider Provider IMPORTANT FOLLOW-UP INFORMATION FOR PCP: Patient information: Note initiated : 11/05/22 at 3:28 pm Service Date, if different from initiated Date: [] Patient: Nu Coto 87 y/o F admitted on 11/03/22 for Hip Fx. Chief Complaint: [] Date of admission: 11/03/22 22:07 Discharge date: 11/06/22 Primary care physician: Mar Hanna Consults: 11/03/22 19:00 Consult to Physician [CONS] Routine Comment: Consulting Provider: Jamey Hamlin Reason For Exam: Physician to Consult COURSE Hospital Course Hospital course: History of present illness: Ms. Coto is a 87 year old F Presents to [place] after a fall. Fall occurred yesterday afternoon she was at home tripped and fell onto her right hip. Patient says she was getting up to go the bathroom was in a hurry and lost her balance and fell. Was then not able to get off the floor remained on the floor overnight until a family member stop by and found her on the floor and called EMS. Work-up in ED revealed rightside hip fracture. Dr. Hamlin was contacted. She was supposed to be off of her Eliquis per PCP because of falls but sounds like she may have been taking it. Sounds like sure dementia has been getting worse and she has had to rely on a friend help take care of her activities of daily living. 11/05 Patient tolerated surgery well. No overnight event or new complaints. Patient sitting in bed eating breakfast. Found to have a UTI on admission evaluation. 11/06 Poor sleep overnight, now sleeping. No acute events or new complaints. Pending rehab. A: *Right Hip fracture: s/p ORIF (11/04) *Generalized weakness/deconditioning: *UTI(GNB): *Dementia: *Paroxysmal A-fib: supposed to be off anticoagulation due to falls, but pt may still be taking it *GERD *CKD III: *Anemia, chronic: P: -Dr Hamlin f/u -jimmie pending Discharge diagnosis: Right hip fracture dementia UTI Secondary discharge diagnosis: GERD chronic kidney disease chronic anemia paroxysmal A-fib generalized weakness deconditioning Time Spent with Patient Time attestation: Total time spent providing and/or coordinating discharge services: Time spent: Greater than 30 minutes EXAM Constitutional Vitals: Temp Pulse Resp BP Pulse Ox O2 Del Method O2 Flow Rate 97.8 F 63 18 101/51 96 Room Air 2 11/05/22 12:00 11/05/22 12:00 11/05/22 12:00 11/05/22 12:00 11/05/22 12:00 11/05/22 12:00 11/05/22 03:40 Discharge Data Data Completed and Pending Labs on day of discharge: Labs from last 24 hours 11/05/22 11/05/22 05:31 05:31 WBC 10.4 RBC 2.92 L Hgb 8.6 L Hct 28.0 L MCV 95.9 MCH 29.5 MCHC 30.7 L RDW 12.7 Plt Count 188 MPV 11.6 Immature Gran % (Auto) 0.5 Neut % (Auto) 90.1 H Lymph % (Auto) 6.1 L [place] % (Auto) 3.2 Eos % (Auto) 0 Baso % (Auto) 0.1 Lymph # (Auto) 0.63 L [place] # (Auto) 0.33 Eos # (Auto) 0 Baso # (Auto) 0.01 Immature Gran # 0.05 Absolute Neutrophils 9.36 H Sodium 140 Potassium 4.1 Chloride 104 Carbon Dioxide 26 Anion Gap 10.0 BUN 28 H Creatinine 1.1 GFR Calculation 45 Glucose 160 H Calcium 8.9 Preliminary micro results at discharge 11/04/22 08:23 Urine Culture - Preliminary Urine - Lu Gram negative bacillus Discharge Plan Patient/Caregiver Discharge Instructions Activity: ambulate only with your walker and as instructed Diet: Regular Diet Activity Restrictions/Additional Instructions: Follow-up with PCP in 3 to 7 days. -50% weight bearing on right lower extremity -No restrictions to range of motion -Ice for 20-30 minutes every 2-3 hours as needed -OK to shower with silver dressing in place. OK to remove the dry dressing over the outside part of the knee for showers. Do not submerge such as a bath. No ointments or lotions Prescriptions: New methocarbamol 500 mg Tablet 500 mg PO TIDP PRN (Reason: Muscle Spasm) Qty: 20 0RF polyethylene glycol 3350 [HealthyLax] 17 gram Powder In Packet 17 gm PO DAILYP PRN (Reason: Constipation) Qty: 14 0RF acetaminophen 500 mg Tablet 1,000 mg PO Q8 Qty: 90 0RF docusate sodium 100 mg Capsule 100 mg PO BID Qty: 60 0RF oxycodone 5 mg Tablet 5 mg PO Q4HP PRN (Reason: Per Pain Protocol) Qty: 40 0RF Eliquis 5 mg Tablet 2.5 mg PO BID Qty: 35 0RF ciprofloxacin HCl [Cipro] 250 mg tablet 250 mg PO BID Qty: 4 0RF Rx Instructions: start on 11/07/2022 Continued polyethylene glycol 3350 [Miralax] 17 gram Powder In Packet 17 g PO QDAY diltiazem HCl 180 mg Capsule,Extended Release 24 Hr 180 mg PO QAM ferrous sulfate [FeroSul] 325 mg (65 mg iron) Tablet 325 mg PO BID famotidine [Acid Director Of Quantitative Research (famotidine)] 20 mg tablet 20 mg PO DAILY Patient Comments: TAKE 1 TABLET BY MOUTH at bedtime FOR STOMACH PROTECTION latanoprost 0.005 % Drops 1 drp OPHTHALMIC (EYE) QDAY brimonidine 0.2 % Drops 1 drp OPHTHALMIC (EYE) BID timolol maleate 0.5 % Drops 1 drp OPHTHALMIC (EYE) QDAY Lactobacillus acidophilus Capsule 2,000 mmu cells PO BID Qty: 40 0RF Rx Instructions: give with food (meal/snack) losartan 100 mg Tablet 100 mg PO QDAY Discontinued Eliquis 5 mg tablet 5 mg PO BID Patient Comments: 5 MG PO BID For pulmonary embolism ciprofloxacin HCl 500 mg Tablet 500 mg PO BID Qty: 10 0RF Follow Up Plan Follow up with: Lopez Edward PA-C [Physician Billboard Mechanic] - (10-13 days for post operative care) Patient Disposition: Xfer SNF Prognosis: Fair Rehab Potential: Fair I certify that the patient requires SNF services: Yes Overall status at discharge: patient is progressing back to baseline Discharge Orders: Discharge Order (Routine); Ordered 11/06/22 [facility] Thromb[facility]/Pulmonary Embolism Present on Admission: No
[2022-11-05] MEDS ORDERED: OLANZapine 10 MG VIAL IM STA (17:05)
--- NOTE | 2022-11-06 07:32 | Internal Med Progress Note ---
SUBJECTIVE Subjective Patient information: Note initiated : 11/06/22 at 7:30 am Service Date, if different from initiated Date: [] Patient: Nu Coto a 87 y/o F admitted on 11/03/22 for Hip Fx. Chief Complaint: [] Interval history: History of present illness: Ms. Coto is a 87 year old F Presents to [place] after a fall. Fall occurred yesterday afternoon she was at home tripped and fell onto her right hip. Patient says she was getting up to go the bathroom was in a hurry and lost her balance and fell. Was then not able to get off the floor remained on the floor overnight until a family member stop by and found her on the floor and called EMS. Work-up in ED revealed rightside hip fracture. Dr. Hamlin was contacted. She was supposed to be off of her Eliquis per PCP because of falls but sounds like she may have been taking it. Sounds like sure dementia has been getting worse and she has had to rely on a friend help take care of her activities of daily living. 11/05 Patient tolerated surgery well. No overnight event or new complaints. Patient sitting in bed eating breakfast. Found to have a UTI on admission evaluation. Review of Systems: Pertinent positives as above. Denies headache/fever/chills/nausea/vomiting/chest or abdominal pain/cough/dyspnea/diarrhea. Remaining 10 point review of system reviewed negative PHYSICAL EXAM General: Alert, Awake, No acute Distress Eyes/N/T: EOMI, no scleral icterus, Head/Neck: neck supple, full ROM, CV: Regular RR, No murmurs, Pulm: Clear b/l, no wheezing/rhonchi/rales, no respiratory distress Abd: soft, nontender, +BS x4 Ext: no clubbing/cyanosis/edema, nontender Neuro: Alert, CN 2-12 grossly intact, no focal deficits, moves all extremities, , sensations intact b/l upper/lower Psychiatric: Pleasantly demented Skin: warm/dry, normal color Constitutional Vitals: Vital Signs Temp Pulse Resp BP Pulse Ox O2 Del Method O2 Flow Rate 98.1 F 78 18 111/43 94 Room Air 2 11/06/22 04:00 11/06/22 04:00 11/06/22 04:00 11/06/22 04:00 11/06/22 04:00 11/06/22 04:00 11/05/22 03:40 Period Temp Pulse Resp BP Sys/Muir Pulse Ox O2 Del Method O2 Flow Rate Last 24 Hr 97 F-98.1 F 63-92 16-18 101-165/43-74 93-97 Room Air-Room Air Intake and Output 11/05/22 11/06/22 11/06/22 19:59 03:59 11:59 Intake Total 1180 Output Total 325 450 300 Balance 855 -450 -300 Weight 62.959 kg 63.639 kg Intake & Output: Intake & Output 11/05/22 11/06/22 11/06/22 19:59 03:59 11:59 Intake Total 1180 Output Total 325 450 300 Balance 855 -450 -300 Weight 62.959 kg 63.639 kg Intake: IV 700 Lactated Ringers 1,000 ml @ 75 700 mls/hr IV .[id number] [facility] Rx#: [id number] Oral 480 Output: Urine Catheter Amount 325 450 300 Other: Meal Dinner Percent of Meal Consumed 100% Feeding Ability Independent Urine Appearance Clear Clear Clear Urine Color Yellow Yellow Yellow Urine Odor Strong OBJ DATA Labs 11/05/22 05:31 11/05/22 05:31 Labs: Abnormal Lab Results 11/05/22 11/05/22 11/04/22 05:31 05:31 08:23 WBC RBC 2.92 L Hgb 8.6 L Hct 28.0 L MCHC 30.7 L Immature Gran % (Auto) Neut % (Auto) 90.1 H Lymph % (Auto) 6.1 L Lymph # (Auto) 0.63 L Immature Gran # Absolute Neutrophils 9.36 H BUN 28 H Creatinine Glucose 160 H Lactate Dehydrogenase Urine Appearance Cloudy A Ur Leukocyte Esterase 250 A Urine RBC 7 H Urine WBC 110 H Urine Bacteria Mod A Hyaline Casts 39 H Urine Mucus Many A 11/04/22 11/04/22 05:06 05:06 WBC 11.6 H RBC 3.37 L Hgb 9.7 L Hct 30.9 L MCHC Immature Gran % (Auto) 0.6 H Neut % (Auto) 80.3 H Lymph % (Auto) 11.7 L Lymph # (Auto) 1.36 L Immature Gran # 0.07 H Absolute Neutrophils 9.33 H BUN Creatinine 1.3 H Glucose 120 H Lactate Dehydrogenase 238 H Urine Appearance Ur Leukocyte Esterase Urine RBC Urine WBC Urine Bacteria Hyaline Casts Urine Mucus Meds: Medications Acetaminophen (Acetaminophen 500 Mg Tablet) 1,000 mg PO Q8 [facility]; Protocol Last Admin: 11/05/22 21:53 Dose: 1,000 mg Hydrocodone Bitart/Acetaminophen (Hydrocodone/Apap 5/325mg Tablet) 1 tab PO Q4HP PRN PRN Reason: PAIN LEVEL 3-6 Last Admin: 11/04/22 09:32 Dose: 1 tab Albuterol/Ipratropium (Ipratropium/Albuterol 3 Ml Ampul.Neb) 3 ml NEB Q4HP PRN PRN Reason: Shortness Of Breath Apixaban (Apixaban 5 Mg Tablet) 2.5 mg PO BID [facility] Last Admin: 11/05/22 21:53 Dose: 2.5 mg Brimonidine Tartrate (Brimonidine Ophth Drops 1 Gtt Bottle 5ml) 1 gtt OU BID [facility] Last Admin: 11/05/22 21:56 Dose: Not Given Ceftriaxone Sodium (Ceftriaxone 1 Gm Vial) 1 gm IV Q24H [facility]; Protocol Last Admin: 11/05/22 10:02 Dose: 1 gm Diltiazem HCl (Diltiazem 180 Mg Cap.Xl.24h) 180 mg PO DAILY [facility] Last Admin: 11/05/22 10:03 Dose: 180 mg Docusate Sodium (Docusate Sodium 100 Mg Capsule) 100 mg PO BID [facility] Last Admin: 11/05/22 21:52 Dose: 100 mg Famotidine (Famotidine 20 Mg Tablet) 20 mg PO BID [facility] Last Admin: 11/05/22 21:53 Dose: 20 mg Potassium Chloride 40 meq/ (Dextrose) 520 mls @ 130 mls/hr IV UD PRN PRN Reason: Potassium Level < 3 Magnesium Sulfate (Magnesium Sulfate) 2 gm in 50 mls @ 25 mls/hr IV UD PRN PRN Reason: Magnesium Level </= 1.6 Lactobacillus Rhamnosus (Lactobacillus 1 Capsule) 1 cap PO BID [facility] Last Admin: 11/05/22 21:53 Dose: 1 cap Latanoprost (Latanoprost Ophth Drops 2.5ml Bottle) 1 gtt OU QDAY [facility] Last Admin: 11/05/22 10:15 Dose: Not Given Losartan Potassium (Losartan 50 Mg Tablet) 100 mg PO DAILY [facility] Last Admin: 11/05/22 10:03 Dose: 100 mg Methocarbamol (Methocarbamol 500 Mg Tablet) 500 mg PO TIDP PRN PRN Reason: Muscle Spasm Metoprolol Tartrate (Metoprolol Tartrate 5 Mg/5 Ml Vial) 5 mg IV Q2HP PRN PRN Reason: Tachyarrhythmias HR>110 Morphine Sulfate (Morphine 4 Mg/Ml Vial) 0 mg IV Q3HP PRN PRN Reason: Pain Last Admin: 11/04/22 11:12 Dose: 3 mg Ondansetron HCl (Ondansetron 4 Mg/2 Ml Vial) 4 mg IV Q4HP PRN PRN Reason: Nausea And Vomiting Last Admin: 11/04/22 12:51 Dose: 4 mg Oxycodone HCl (Oxycodone Ir 5 Mg Tablet) 0 mg PO Q4HP PRN; Protocol PRN Reason: Per Pain Protocol Polyethylene Glycol (Polyethylene Glycol 3350 17 Gm Packet) 17 gm PO DAILYP PRN PRN Reason: Constipation Potassium Chloride (Potassium Chloride 20 Meq Tablet) 40 meq PO UD PRN PRN Reason: Potassium Level of 3-3.5 Potassium Chloride (Potassium Chloride 20 Meq Tablet) 40 meq PO UD PRN PRN Reason: Potassium Level < 3 Senna (Sennosides 1 Tablet) 2 tab PO DAILYP PRN PRN Reason: Constipation Throat Lozenges (Benzocaine/Menthol 1 Lozenge) 1 lozenge PO PRN PRN PRN Reason: Sore Throat Timolol Maleate (Timolol 0.5% Ophth Drops Bottle 5ml) 1 gtt OU QDAY [facility] Last Admin: 11/05/22 10:15 Dose: Not Given A/P Narrative A/P Narrative: A: *Right Hip fracture: s/p ORIF (11/04) *Generalized weakness/deconditioning: *UTI(GNB): *Dementia: *Paroxysmal A-fib: supposed to be off anticoagulation due to falls, but pt may still be taking it *GERD *CKD III: *Anemia, acute on chronic: P: -Dr Hamlin for orthopedic repair -Pain control -monitor afib on tele -monitor renal function and urine output -monitor H&H -cont home Dilt/ARB -rocephin pending UC -PT/OT -CM for placement -ppx: SCD and postop per ortho eliquis 2.5mg / home H2 Time Spent With Patient Time: Total time spent is greater than 50% in coordination of care (as documented) at patient's floor/unit and/or counseling patient: Subsequent: Total time with patient: 35 - 49 minutes QUALITY VTE Deep Vein Thrombosis/Pulmonary Embolism Present on Admission: No
[2022-11-06] MEDS: ACETAMINOPHEN 500 MG TABLET PO SCH (10:21)
[2022-11-06] MEDS: FAMOTIDINE 20 MG TABLET PO SCH (10:47)
[2022-11-06] MEDS: DOCUSATE SODIUM 100 MG CAPSULE PO SCH (10:47)
[2022-11-06] MEDS: DILTIAZEM 180 MG CAP.XL.24H PO SCH (10:48)
[2022-11-06] MEDS: APIXABAN 5 MG TABLET PO SCH (10:48)
[2022-11-06] MEDS: LOSARTAN 50 MG TABLET PO SCH (10:48)
[2022-11-06] MEDS: LACTOBACILLUS 1 CAPSULE PO SCH (10:48)
[2022-11-06] MEDS: BRIMONIDINE OPHTH DROPS 1 GTT BOTTLE 5ML OU SCH (10:51)
[2022-11-06] MEDS: cefTRIAXone 1 GM VIAL IV SCH (10:51)
[2022-11-06] MEDS: TIMOLOL 0.5% OPHTH DROPS BOTTLE 5ML OU SCH (10:52)
[2022-11-06] MEDS: LATANOPROST OPHTH DROPS 2.5ML BOTTLE OU SCH (10:52)
== END 2022-11-06 11:03 | DRG 481 ==
LOC: MEDSUR 22:07
PROVIDERS: ADMIT Internal Medicine; ATTEND Internal Medicine